=== PATIENT | female | born 1975 | race Caucasian/White ===

== ENCOUNTER 2025-03-24 13:29 | Outpatient (AMB) | payer OTHER, SELFPAY ==
--- NOTE | 2025-03-24 13:19 | A.OFFVIS_ITS ---
Vital Signs 03/24/25 13:33 Height 5 ft 2.2 in Weight 232 lb 2 oz BMI 42.2 BP 130/84 Blood Pressure Location Rt brachial Position Sitting Pulse 83 Pulse Source Pulse Oximeter Pulse Oximetry (%) 98 Oxygen Delivery Method Room Air Intake Visit Reasons: pulm lung nodule Allergies codeine Allergy (Intermediate, Verified 03/24/25 13:36) Hives HPI HPI pulm lung nodule: Details: Eladia is a pleasant 49 year old, former minimal smoker, with underlying asthma in history of DVT/PE. She was referred by PCP pulmonary evaluation after recent chest CT revealed mediastinal lymphadenopathy. Prior chest CT from 2022 revealed similar findings however images not available today. She denies prior workup for these findings. She denies personal or family history of autoimmune conditions. She endorses joint pain, skin rashes and night sweats. Denies dry eyes, dry mouth, cardiac, liver or kidney disease. She reports history of asthma since childhood however symptoms have been mild and intermittent only requiring albuterol a few times a year. 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 She was hospitalized in July 2023 for asthma. She reports respiratory symptoms are triggered by cold air, humidity and exertion. She is under the care of Dr. Dangelo, salary manager, awaiting environmental testing. She was also prescribed AirSupra which she has not used since being prescribed. She reports intermittent dyspnea on exertion, otherwise denies wheezing, chest tightness or. She reports recent PFT there [facility] which was reportedly normal, results not available today. She reports prior history of PE/DVT about 15 years ago on 3 separate occasions unclear if they provoked. She has upcoming appointments Hematology for further evaluation. She endorses significant secondhand smoke exposure. She endorses likely occupational exposures working in the [employer] for 15 years. She reports paternal grandparents with COPD/emphysema, smoker is, otherwise denies any pertinent family history. [facility] Social History (Updated 03/24/25 @ 13:36 by Gloria Mckeon [facility]) Patient Tobacco Use Status: Former Tobacco user Review of Systems Const Denies chills, Denies excessive sweating, Denies fever(s) and Denies headache(s) Eyes Denies dry eyes, Denies irritation and Denies itchy eyes ENT Reports Normal hearing present and Denies headache(s) Card Denies chest pain, Denies chest pain at rest, Denies chest pain with activity, Denies claudication, Denies leg edema, Denies orthopnea and Denies paroxysmal nocturnal dyspnea Resp Denies chest congestion, Denies cough, Denies excessive phlegm production, Denies pain on inspiration, Denies pain with cough, Denies stridor and Denies wheezing Musc Denies myalgias Neuro Reports Normal hearing present and Denies headache(s) Endo Denies excessive sweating Jaydon/Lymph Denies lymphadenopathy Aller/Immun Denies itchy eyes, Denies seasonal rhinorrhea and Denies wheezing Physical Exam Vital Signs: Last Vital Signs Pulse 83 03/24/25 13:33 BP 130/84 03/24/25 13:33 Pulse Ox 98 03/24/25 13:33 Oxygen Delivery Method Room Air 03/24/25 13:33 BMI result Body Mass Index 42.2 Const General: cooperative, healthy appearing, comfortable, no acute distress, well developed and alert Nutritional Appearance: obese Orientation/consciousness: patient oriented x3 Limitations: no limitations HEENT Head: Yes normal to inspection, Yes normocephalic and Yes atraumatic Ears: hearing grossly normal bilaterally and external ears normal Eyes General: appearance normal, both eyes and all related structures Eyelids: Yes eyelids normal Sclerae: sclerae normal EOM: EOMs intact bilaterally Neck Neck: Yes normal visual inspection and Yes no lymphadenopathy Lymphatic: no lymphadenopathy noted Chest Chest palpation & inspection: normal inspection of the chest Resp Effort & Inspection: normal respiratory effort, able to speak in complete sentences, no audible wheezes, no cough, no stridor, not tachypneic, no tripod positioning and no use of accessory muscles Auscultation: clear to auscultation bilaterally Cardio Jugular venous distension: no JVD Rate: regular rate Rhythm: regular rhythm Skin Other: warm, dry General skin exam: no rashes or lesions noted Neuro General: patient oriented x3 Cranial nerves: Yes Normal hearing present Cognition (Neuro): normal cognition Gait exam (Neuro): Normal gait present Extrem General: Yes normal to inspection, Yes capillary refill normal, Yes no clubbing, cyanosis or edema and Yes no pedal edema Psych Appearance: grossly normal and well kempt Speech and movement: Normal speech and movement present and Clear speech present Affect: normal affect Attitude: cooperative Thought process: Normal thought process present Thought content: Normal thought content present Insight: Good insight present (Psych) Judgement: Good judgement present (Psych) Results Reviewed Results Reviewed: Exam Date: 12/23/2024 INDICATION: Lung nodules. History of asthma. TECHNIQUE: CT of the chest was performed without contrast. Automated mA/kV exposure control was utilized and patient examination was performed in strict accordance with principles of ALARA. RADIATION AMOUNT: 549.20 mGy-cm. COMPARISON: None Available. FINDINGS: The heart is normal in size without pericardial effusion. Coronary artery calcifications are not identified. Azygous node is enlarged measuring 2.7 x 1.7 cm. There is no pleural effusion, pleural thickening, or pneumothorax. The airways are patent. Lungs are clear without consolidation, interstitial disease, or suspicious nodules. Upper abdomen demonstrates no acute pathology. There are no acute fractures. No suspicious bony lesions. IMPRESSION: No acute cardiopulmonary abnormality. Single enlarged azygos lymph node of uncertain significance. No evidence of pulmonary nodule. No evidence of interstitial lung disease. Mohamud Valdez MD Signed by Mohamud Valdez MD [facility] provided for [facility] Radiology Assessment & Plan Assessment & Plan (1) Mediastinal lymphadenopathy: Code(s): R59.0 - Localized enlarged lymph nodes Category: Medical (2) Asthma: Code(s): J45.909 - Unspecified asthma, uncomplicated Category: Medical Plan Eladia presents for pulmonary evaluation after known history of mediastinal lymphadenopathy. Will send for repeat chest CT with contrast now as prior CT was from 3 months ago. The lymphadenopathy could be a result of underlying autoimmune condition, will send for labs to assess. She reports recent PFT performed through [facility], will attempt to obtain. At this time, she reports symptoms of asthma are well controlled with minimal use of albuterol. She is aware to call if symptoms worsen. All questions were answered and patient is in agreement of plan. Will follow-up to review results or sooner if needed. Orders: Orders YI Reflex Titer and Pattern Today R59.0 - Localized enlarged lymph nodes Angiotensin Converting Enzyme Today R59.0 - Localized enlarged lymph nodes Cyclic Citrullinated Peptide Today R59.0 - Localized enlarged lymph nodes Scleroderma 70 Antibody Today R59.0 - Localized enlarged lymph nodes Anti DNA DS Antibody Today R59.0 - Localized enlarged lymph nodes Sjogren's Antibodies Today R59.0 - Localized enlarged lymph nodes Rheumatoid Factor Today R59.0 - Localized enlarged lymph nodes CT chest w IV con Today R59.0 - Localized enlarged lymph nodes Coding Level of Care Code New Pt Level 4 (59062) Diagnoses Mediastinal lymphadenopathy R59.0 Asthma J45.909
[2025-03-24 13:33] VITALS: BP 130/84; PULSE 83; O2SAT 98; BMI 42.2
== END 2025-03-24 14:14 | disposition home or self-care (01) ==
LOC: HO.HPSW 13:29
PROVIDERS: Visit Provider Nurse Practitioner Family
DX: R59.0 Localized enlarged lymph nodes (principal); J45.909 Unspecified asthma, uncomplicated
CPT/HCPCS: 99204

== ENCOUNTER → 2025-03-24 13:29 | Outpatient (BNVA) | payer OTHER, SELFPAY | PROVIDERS: Visit Provider Nurse Practitioner Family ==

== ENCOUNTER 2025-03-25 07:57 | Outpatient (REF) | payer OTHER, SELFPAY ==
[2025-03-25 11:46] LABS: Rheumatoid Factor < 13.0 IU/mL (<15.0)
[2025-03-26 16:34] LABS: Anti DNA DS Antibody 2 IU/mL; Antibody to SS-A Antigen <1.0 NEG AI (<1.0 NEG); Antibody to SS-B Antigen <1.0 NEG AI (<1.0 NEG); Scleroderma 70 Antibody <1.0 NEG AI (<1.0 NEG)
[2025-03-29 00:49] LABS: Angiotensin Converting Enzyme 19 U/L (9-67)
[2025-03-30 15:05] LABS: Anti Nuclear Antibody Screen NEGATIVE (NEGATIVE)
[2025-03-31 13:48] LABS: Cyclic Citrullinated Peptide <16 UNITS
== END 2025-03-25 07:58 | disposition home or self-care (01) ==
LOC: HO.WFDLDS 07:57
PROVIDERS: Visit Provider Nurse Practitioner Family
DX: R59.0 Localized enlarged lymph nodes (principal)
CPT/HCPCS: 36415; 82164; 86038; 86200; 86225; 86235; 86431

== ENCOUNTER 2025-04-28 13:26 | Outpatient (REF) | payer OTHER, SELFPAY ==
--- NOTE | ~2025-04-28 | CT_ITS ---
EXAMINATION: CT CHEST WITH CONTRAST CLINICAL INFORMATION: Localized enlarged lymph nodes. COMPARISON: None available. TECHNIQUE: Multidetector volumetric CT imaging of the chest was obtained after the administration of 65 mL of Omnipaque 350 intravenous contrast without immediate adverse reactions. Axial MIP volume rendering provided. Sagittal and coronal reformatted images were obtained. This CT examination was performed using dose optimization techniques as appropriate, variously including the following: *Automated exposure control *Adjustment of mA and/or kV according to patient size (this includes techniques or standardized protocols for targeted exams where dose is matched to indication/reason for exam; i.e. extremities or head) *Use of iterative reconstruction technique. DLP: 223 mGy centimeter. FINDINGS: REVISING CLERK: No hyperinflation. Normal sized cardiomediastinal silhouette. Multilevel spondylosis. Patient's large body habitus. LUNGS: Pulmonary patchy groundglass, lower lung lobes. No gross consolidation. No bronchiectasis. No honeycombing. Respiratory airways patent. MEDIASTINUM: There is a 39 mm low density nodule in the right pretracheal region. No aneurysm or dissection in the thoracic aorta. For IV contrast enhancement of the pulmonary artery and its branches. No pericardial effusion. No pneumomediastinum. No hemothorax. Thyroid gland is not enlarged. No lymphadenopathy in the pulmonary hilum. PLEURA: No pleural effusion. No pneumothorax. No calcified pleural plaques. No hemothorax. AXILLA: No lymphadenopathy. UPPER ABDOMEN: No gross ascites. No hydronephrosis in either kidney. OSSEOUS STRUCTURES: Multilevel spondylosis in the axial skeleton. No acute fracture or gross listhesis. No gross lytic or blastic lesions. CT/CT chest w IV con IMPRESSION: There is a 9 mm low-density nodule/lymphadenopathy right pretracheal. Consider small airway disease versus small pulmonary artery disease versus pneumonitis. Multilevel spondylosis. Fleischner guidelines were followed. Electronically signed by: Jeremy Cooper MD 04/28/2025 02:58 PM EDT
--- OUTSIDE RECORDS SUMMARY | 2025-04-28 14:13 | XMS_ITS | Clinical Summary ---
Author Organization [facility] Address [address] [place] [address] Phone Care Team Providers Care Trader Name Role Phone Norman Pfeiffer MD Primary Care Pr ovider Allergies Active Allergy Reactions Criticality Noted Date Comments Codeine 07/20/2013 hives Medications bisacodyL (Dulcolax, bisacodyl,) 5 mg EC tablet Take 2 tabs at 6pm as directed. 12/11/2022 Active Active Problems Problem Noted Date Diagnosed Date Abdominal pain 10/19/2024 Celiac sprue 10/19/2024 Vitamin D deficiency 02/22/2016 Shoulder pain 01/12/2015 PCOS (polycystic ovarian syndrome) 04/28/2012 Migraine 03/03/2012 Obesity 01/03/2012 Immunizations Name Administration Dates Next Due Hepatitis B (Lmvriff-D-Opxxf , Recombivax HB-Adult) 19yo and older 09/30/2003,08/31/2003 Influenza trivalent, with pr eservative (Fluzone; Afluria) 6mo and older 09/11/2021 PPD Test 04/03/2017,09/14/2004,11/17/2002 Td, Unspecified 08/31/2003 Tdap Tetanus diptheria acell ular pertussis (Boostrix; Adacel) 7yo and older 01/14/2012 Surgical History Surgery Date Site/Laterality Comments OTHER SURGICAL HISTORY PROCEDURE: DENIES PREVIOUS SURGERY Medical History Medical History Date Comments Metabolic syndrome DX:Metabolic syndrome PCOS (polycystic ovarian syndrome) DX:PCOS (polycystic ovarian syndrome) Chronic fatigue DX:Chronic fatig ue; COMMENT: in high school, but not as an adult Lumbar herniated disc 2001 DX:Lumbar herniated disc; COMMENT: L5-S1 Obesity DX:Obesity Vitamin D deficiency 02/22/2016 DX:Vitamin D deficiency Migraine headache with aura DX:M igraine headache with aura Bronchitis DX:Bronchitis Abdominal pain DX:Abdominal ruben n Celiac sprue DX:Celiac sprue Family History Medical History Relation Name Comments Hypertension Father Other: prediabetes Father Other: Other Maternal Grandmother celiac/ uterine fibroids Other: Other Mother uterine fibroid s COPD Paternal Grandfather COPD Paternal Grandmother Breast cancer Neg Hx Colon cancer Neg Hx Ovarian cancer Neg Hx Uterine cancer Neg Hx Relation Name Status Comments Brother Alive healthy Father Alive HTN, gout, arth ritis Maternal Grandfather Alive DM, narayan kemia, CVAs Maternal Grandmother Alive celiac Mother Alive fibroids Paternal Grandfather Alive COPD, p rediabetes, pacemaker, afib Paternal Grandmother (Age 83) [place]; hospice care Social History Tobacco Use Types Packs/Day Years Used Date Smoking Tobacco: Never Smokeless Tobacco: Never Alcohol Use Standard Drinks/Week Comments No 0 (1 standard drink = 0.6 oz pur e alcohol) Comments Unknown Sex and Gender Information Value Date Recorded Sex Assigned at Female 01/18/2025 12:33 PM EDT Legal Sex Female 8:05 AM EST Gender Identity Female 01/18/2025 12:33 PM EDT Sexual Orientation Not on file Obstetrics History Last Filed Vital Signs Vital Sign Reading Time Taken Comments Blood Pressure 124/76 07/20/2022 8:06 AM EDT Pulse 86 07/20/2022 8:06 AM EDT Temperature - - Respiratory Rate - - Oxygen Saturation - - Inhaled Oxygen Concentration - - Weight 110 kg (243 lb 4.8 oz) 07/20/2022 8:06 AM EDT Height 159.4 cm (5' 2.75 ) 07/20/2022 8:06 AM ED T Body Mass Index 43.44 07/20/2022 8:06 AM EDT Plan of Treatment Health Maintenance Due Date Last Done Comments Breast Cancer Screening 1975 Pneumococcal Vaccine: Pediatrics (0 to 5 Years) and At-Risk Patients (6 to 49 Years) (1 of 2 - PCV) 1994 Hepatitis B Vaccines (3 of 3 - 19+ 3-dose series) 02/29/2004 09/30/2003, 08/31/2003 Cervical Cancer Screening: P ap Smear 07/16/2019 07/16/2016, 07/16/2016 DTaP,Tdap,and Td Vaccines (3 - Td or Tdap) 01/13/2022 01/14/2012, 08/31/2003 Colorectal Cancer Screening: Colonoscopy 09/22/2022 Depression Screening 09/22/2022 HIV Screening 09/22/2022 Hepatitis C Screening 09/22/2022 Social Influencers of Health Screening 09/22/2022 COVID-19 Vaccine (2023-2 5 season) 2024 Influenza Vaccine (#1) 2025 09/11/2021 Cholesterol Screening (Lipid Panel) 03/28/2026 03/28/2021 HIB Vaccines Aged Out No longer eligi ble based on patient's age to complete this topic HPV Vaccines Aged Out No longer eligi ble based on patient's age to complete this topic Hepatitis A Vaccines Aged Out No long er eligible based on patient's age to complete this topic IPV Vaccines Aged Out No longer eligi ble based on patient's age to complete this topic MMR Vaccines Aged Out No longer eligi ble based on patient's age to complete this topic Meningococcal ACWY Vaccine Aged Out N o longer eligible based on patient's age to complete this topic Meningococcal B Vaccine Aged Out No l onger eligible based on patient's age to complete this topic RSV Immunization Patients Under 20 months Aged Out No longer eligible b ased on patient's age to complete this topic Varicella Vaccines Aged Out No longer eligible based on patient's age to complete this topic Procedures Procedure Name Priority Date/Time Associated Diagnosis Comments LIPID PANEL Routine 03/28/2021 HM HPV Routine 07/16/2016 from Last 3 Months or Most Recently Relevant to Health Maintenance Results * (ABNORMAL) Lipid panel (03/28/2021) LDL/HDL Ratio 4 0 - 4 Triglycerides 277(A) 0 - 150 mg/dL Cholesterol 230(A) 0 - 200 mg/dL HDL 54 >=40 mg/dL LDL Cholesterol 121(A) 0 - 100 mg/dL Blood Venous blood specimen / Unknown Historical Provider LAB BLOOD ORDERABLES Vandana l Result * Cervical Cancer Screening: HPV (07/16/2016) Cervical Cancer Screening: HPV Negative, Abstracted Historical Provider HEALTH MAINTENANCE Final Result from Last 3 Months or Most Recently Relevant to Health Maintenance Insurance [facility] Care Teams Trader Relationship Specialty Start Date End Date Norman Pfeiffer MD [address], [place] PCP - General Internal Medicine 05/04/22
--- OUTSIDE RECORDS SUMMARY | 2025-04-28 14:13 | XMS_ITS | Clinical Summary ---
Author Organization [facility] Address [address] [place] [address] Care Team Providers Care Healthcare Account Manager Name Role Phone Unavailable Primary Care Provider Unavailabl e Social History Tobacco Use Types Packs/Day Years Used Date Smoking Tobacco: Never Assessed Comments Unknown Sex and Gender Information Value Date Recorded Sex Assigned at Not on file Legal Sex Female 8:21 AM EST Gender Identity Not on file Sexual Orientation Not on file Plan of Treatment Health Maintenance Due Date Last Done Comments Hepatitis C Virus Screening 1975 HIV Screening 1988 DTaP/Tdap/Td Vaccines (1 - Tdap) 1994 Hepatitis B Vaccines (1 of 3 - 19+ 3-dose series) 1994 COVID-19 Vaccine (2023-2 5 season) 2024 Pneumococcal Vaccine: Pediat charo (0-5 Years) and At-Risk Patients (6 to 49 Years) Aged Out No longer eligible b ased on patient's age to complete this topic
[2025-04-28] MEDS: iohexoL 350 MG/ML 100 ML INFUS..BTL IV (14:51)
== END 2025-04-28 13:27 | disposition home or self-care (01) ==
LOC: HO.CT 13:26
PROVIDERS: Visit Provider Nurse Practitioner Family
DX: R59.0 Localized enlarged lymph nodes (principal)
CPT/HCPCS: 71260; Q9967

== ENCOUNTER → 2025-04-28 13:28 | Outpatient (BNV) | payer OTHER, SELFPAY | PROVIDERS: Visit Provider Radiology Diagnostic Radiology | DX: R91.1 Solitary pulmonary nodule (principal); M47.814 Spondylosis without myelopathy or radiculopathy, thoracic region | CPT/HCPCS: 71260 ==

== ENCOUNTER 2025-05-25 10:54 | Outpatient (AMB) | payer OTHER, SELFPAY ==
[2025-05-25 10:56] VITALS: BP 130/82; PULSE 74; O2SAT 97; BMI 41.7
--- NOTE | 2025-05-25 10:56 | A.OFFVIS_ITS ---
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 She was initially referred by PCP pulmonary evaluation after chest CT 12/2024 revealed mediastinal lymphadenopathy with noting enlarged azygos lymph node. Prior chest CT from 2022 revealed ill defined 9mm LLL opacity which has since resolved as well as a cluster of enlarged lymph nodes measuring 2.5 x 2.2 cm. At the last visit she was sent for repeat chest CT to assess stability. The patient has a history of asthma, initially diagnosed in childhood as exercise-induced asthma, which was largely asymptomatic until a recent exacerbation. She reports intermittent use of AirSupra, particularly in response to poor air quality, and finds it helpful in managing symptoms, prescribed by customs officer. She reports recent PFT performed at [facility], reviewed report and unremarkable PFT. She reports prior history of PE/DVT about 15 years ago on 3 separate occasions unclear if they provoked, however notes the first occurrences associated with control use. She has been established with [facility] and has undergone extensive hematologic evaluation, including a thrombophilia panel, with results pending. Today she presents to review CT results. FOR[facility]LY [facility], [facility] Social History Patient Tobacco Use Status: Former Tobacco user Review of Systems Const Denies chills, Denies excessive sweating, Denies fever(s) and Denies headache(s) Eyes Denies dry eyes, Denies irritation and Denies itchy eyes ENT Reports Normal hearing present and Denies headache(s) Card Denies chest pain, Denies chest pain at rest, Denies chest pain with activity, Denies claudication, Denies leg edema, Reports dyspnea on exertion, Denies orthopnea and Denies paroxysmal nocturnal dyspnea Resp Denies chest congestion, Denies cough, Denies excessive phlegm production, Denies pain on inspiration, Denies pain with cough, Reports dyspnea on exertion, Denies stridor and Denies wheezing Musc Denies myalgias Neuro Reports Normal hearing present and Denies headache(s) Endo Denies excessive sweating Jaydon/Lymph Denies lymphadenopathy Aller/Immun Denies itchy eyes, Denies seasonal rhinorrhea and Denies wheezing Physical Exam Vital Signs: Last Vital Signs Pulse 74 05/25/25 10:56 BP 130/82 05/25/25 10:56 Pulse Ox 97 05/25/25 10:56 Oxygen Delivery Method Room Air 05/25/25 10:56 BMI result Body Mass Index 41.7 Const General: cooperative, healthy appearing, comfortable, no acute distress, well developed and alert Nutritional Appearance: obese Orientation/consciousness: patient oriented x3 Limitations: no limitations HEENT Head: Yes normal to inspection, Yes normocephalic and Yes atraumatic Ears: hearing grossly normal bilaterally and external ears normal Eyes General: appearance normal, both eyes and all related structures Eyelids: Yes eyelids normal Sclerae: sclerae normal EOM: EOMs intact bilaterally Neck Neck: Yes normal visual inspection and Yes no lymphadenopathy Lymphatic: no lymphadenopathy noted Chest Chest palpation & inspection: normal inspection of the chest Resp Effort & Inspection: normal respiratory effort, able to speak in complete sentences, no audible wheezes, no cough, no stridor, not tachypneic, no tripod positioning and no use of accessory muscles Auscultation: clear to auscultation bilaterally Cardio Jugular venous distension: no JVD Rate: regular rate Rhythm: regular rhythm Skin Other: warm, dry General skin exam: no rashes or lesions noted Neuro General: patient oriented x3 Cranial nerves: Yes Normal hearing present Cognition (Neuro): normal cognition Gait exam (Neuro): Normal gait present Extrem General: Yes normal to inspection, Yes capillary refill normal, Yes no clubbing, cyanosis or edema and Yes no pedal edema Psych Appearance: grossly normal and well kempt Speech and movement: Normal speech and movement present and Clear speech present Affect: normal affect Attitude: cooperative Thought process: Normal thought process present Thought content: Normal thought content present Insight: Good insight present (Psych) Judgement: Good judgement present (Psych) Results Reviewed Results Reviewed: [address] [address] [address] Scan Report Signed Patient: Eladia Saldana MR#: [id number] : 1975 Acct:[id number] Age/Sex: 49 / F ADM Date: 04/28/25 Loc: HO.CT Attending Dr: Chrissy Grarett NP Ordering Physician: Chrissy Garrett NP Date of Service: 04/28/25 Procedure(s): CT chest w IV con Accession Number(s): [id number] cc: Physician,None ; Chrissy Garrett NP~ Report Number: [id number]: Total DLP = 223.00 mGy-cm EXAMINATION: CT CHEST WITH CONTRAST CLINICAL INFORMATION: Localized enlarged lymph nodes. COMPARISON: None available. TECHNIQUE: Multidetector volumetric CT imaging of the chest was obtained after the administration of 65 mL of Omnipaque 350 intravenous contrast without immediate adverse reactions. Axial MIP volume rendering provided. Sagittal and coronal reformatted images were obtained. This CT examination was performed using dose optimization techniques as appropriate, variously including the following: *Automated exposure control *Adjustment of mA and/or kV according to patient size (this includes techniques or standardized protocols for targeted exams where dose is matched to indication/reason for exam; i.e. extremities or head) *Use of iterative reconstruction technique. DLP: 223 mGy centimeter. FINDINGS: GUNITE MIXER: No hyperinflation. Normal sized cardiomediastinal silhouette. Multilevel spondylosis. Patient's large body habitus. LUNGS: Pulmonary patchy groundglass, lower lung lobes. No gross consolidation. No bronchiectasis. No honeycombing. Respiratory airways patent. MEDIASTINUM: There is a 39 mm low density nodule in the right pretracheal region. No aneurysm or dissection in the thoracic aorta. For IV contrast enhancement of the pulmonary artery and its branches. No pericardial effusion. No pneumomediastinum. No hemothorax. Thyroid gland is not enlarged. No lymphadenopathy in the pulmonary hilum. PLEURA: No pleural effusion. No pneumothorax. No calcified pleural plaques. No hemothorax. AXILLA: No lymphadenopathy. UPPER ABDOMEN: No gross ascites. No hydronephrosis in either kidney. OSSEOUS STRUCTURES: Multilevel spondylosis in the axial skeleton. No acute fracture or gross listhesis. No gross lytic or blastic lesions. CT/CT chest w IV con IMPRESSION: There is a 9 mm low-density nodule/lymphadenopathy right pretracheal. Consider small airway disease versus small pulmonary artery disease versus pneumonitis. Multilevel spondylosis. Fleischner guidelines were followed. Electronically signed by: Jeremy Cooper MD 04/28/2025 02:58 PM EDT RP Dictated By: Jeremy Cole MD Signed By: <Electronically signed by Jeremy Diez MD in [place]> 04/28/25 1458 DD/ 1425 TD/TT: 04/28/25 1450 Heavy Lift Rigger: Assessment & Plan Assessment & Plan (1) Mediastinal lymphadenopathy: Code(s): R59.0 - Localized enlarged lymph nodes Category: Medical (2) Asthma: Code(s): J45.909 - Unspecified asthma, uncomplicated Category: Medical Plan The patient is advised to continue using AirSupra as needed, particularly in response to poor air quality, and to monitor for increased frequency of use, which may necessitate a daily maintenance inhaler. A repeat CT chest with contrast will be ordered in 3 months to monitor the 9 mm low-density nodule/lymphadenopathy right pretracheal, with a focus on any changes in size or characteristics. The patient is also undergoing a thorough hematologic evaluation, including a thrombophilia panel, to assess the risk of further thrombotic events. All questions were answered and patient is in agreement of plan. Will follow-up to review results or sooner if needed. Coding Level of Care Code Est Pt Level 4 (28925) Diagnoses Mediastinal lymphadenopathy R59.0 Asthma J45.909
--- OUTSIDE RECORDS SUMMARY | 2025-05-25 12:01 | XMS_ITS | Clinical Summary ---
Author Organization [facility] Address [address] [place] [address] Phone Care Team Providers Care Shingle Trimmer Name Role Phone Norman Pfeiffer MD Primary [...] Name Administration Dates Next Due Hepatitis B (Vsgpewz-Y-Stfdg , Recombivax HB-Adult) 19yo and older 09/30/2003,08/31/2003 [...] 01/14/2012, 08/31/2003 Colorectal Cancer Screening: Colonoscopy 09/22/2022 HIV Screening 09/22/2022 Hepatitis C Screening 09/22/2022 Social Influencers of Health Screening 09/22/2022 COVID-19 Vaccine (1 - 2023-2 5 season) 2024 Depression Screening 10/14/2024 Influenza Vaccine (#1) 2025 09/11/2021 Cholesterol Screening [...] Most Recently Relevant to Health Maintenance Insurance [facility] Care Teams Shingle Trimmer Relationship Specialty Start Date End Date Norman Pfeiffer MD [address], [place] PCP - General Internal Medicine 05/04/22
--- OUTSIDE RECORDS SUMMARY | 2025-05-25 12:01 | XMS_ITS | Clinical Summary ---
Author Organization [facility] Address [address] [place] [phone] Phone Care Team Providers Care Internal Medicine Specialist Name Role Phone Pcp, Unknown Primary Care Provider Unavailabl e Allergies Active Allergy Reactions Criticality Noted Date Comments Codeine Hives 03/18/2025 Medications AIRSUPRA 90-80 mcg/actuation inhaler Inhale 2 puffs into the lungs daily as needed. 5 Active buPROPion (WELLBUTRIN XL) 150 MG ER 24 hr tablet Take 1 tablet by mouth every morning. 5 Active cetirizine (ZYRTEC) 10 MG tablet Take 1 tablet by mouth every morning. 5 Active ciclopirox (PENLAC) 8 % solution Apply topically nightly at bedtime. 5 Active EPINEPHrine 0.3 mg/0.3 mL auto-injector Inject 0.3 mg into the muscle once as needed. 5 Active metFORMIN (GLUCOPHAGE) 500 MG tablet Take 1 tablet by mouth every morning. 5 Active Encounters Date Type Department Care Team Description 03/22/2025 2:30 PM EDT - 03/22/2025 3:00 PM EDT Surgery [facility] Endoscopy Admitting Dept Virtual Department [address] [place] [id number] Chris Grullon MD COLONOSCOPY 03/22/2025 12:14 PM EDT Anesthesia Event [facility] Admitting Dept Virtual Department [address] [place] [address] Chandrakant Srivastava MD 03/22/2025 11:03 AM EDT - 03/22/2025 1:20 PM EDT Hospital Encounter [facility] Admitting [facility] Virtual Department [address] [place] [phone] Chris Grullon MD Discharge Disposition: Home or Self Care 03/22/2025 Procedure Pass [facility] Admitting Dept Virtual Department [address] [place] [address] 03/17/2025 3:30 PM EDT Pre-Admission Testing Pre Procedure Evaluation [address] [place] [address] Chris Grullon MD from Last 3 Months Social History Tobacco Use Types Packs/Day Years Used Date Smoking Tobacco: Former Cigarettes Q uit: 1994 Smokeless Tobacco: Never Tobacco Cessation:Counseling Given: Not Answered Alcohol Use Standard Drinks/Week Comments Not Currently 0 (1 standard drink = 0.6 oz pur e alcohol) Education Answer Date Recorded Are you interested in more education? Not on alana e 02/08/2025 Are you concerned about learning? Not on file 02/08/2025 No 02/08/2025 No 02/08/2025 Digital Access Answer Date Recorded No 02/08/2025 No 02/08/2025 Reliable internet access at home? Not on file 02/08/2025 Device with a working camera? Not on file Intimate Partner Violence Answer Date R ecorded Are you denied basic needs s uch as food, clothing, or medical care? No 03/22/2025 In the past 12 months have y ou been in a relationship with a person who hurts, threatens, or tries to control you? No 03/22/2025 Are you denied basic needs s uch as food, clothing, or medical care? No 03/22/2025 In the past 12 months have y ou been in a relationship with a person who hurts, threatens, or tries to control you? No 03/22/2025 Comments No Sex and Gender Information Value Date Recorded Sex Assigned at Not on file Legal Sex Female 10:05 AM EDT Gender Identity Not on file Sexual Orientation Not on file Last Filed Vital Signs Vital Sign Reading Time Taken Comments Blood Pressure 130/81 03/22/2025 1:00 PM EDT Pulse 76 03/22/2025 1:00 PM EDT Temperature 36.5 C (97.7 F) 03/22/2025 11:25 AM EDT Respiratory Rate 15 03/22/2025 1:00 PM EDT Oxygen Saturation 96% 03/22/2025 1:00 PM EDT Inhaled Oxygen Concentration - - Weight 104.3 kg (230 lb) 03/18/2025 11:57 AM EDT Height 157.5 cm (5' 2 ) 03/18/2025 11:57 AM EDT Body Mass Index 42.07 03/18/2025 11:57 AM EDT Plan of Treatment Health Maintenance Due Date Last Done Comments CREATININE LEVEL 1975 DEPRESSION SCREENING 1987 HEPATITIS C SCREENING 1993 HIV ONE-TIME SCREENING (18-6 5 YEARS) 1993 PAP SMEAR 1996 SCREENING FOR DIABETES 2010 COLOGUARD 2020 FIT TEST 2020 FOBT 2020 SIGMOIDOSCOPY 2020 VIRTUAL COLONOSCOPY 2020 Adult Td,Tdap Booster 01/13/2022 01/14/2012 , 08/31/2003 COVID-19 VACCINE (2023-2 5 season) 2024 SMOKING Hx and SMOKELESS TOBACCO SCREENING 03/22/2026 03/22/2025 LIPID PANEL 03/28/2026 03/28/2021 MAMMOGRAM 01/21/2027 01/21/2025 COLONOSCOPY 03/22/2035 03/22/2025 COLORECTAL CANCER SCREENING 03/22/2035 HEPATITIS A VACCINES Aged Out No long er eligible based on patient's age to complete this topic HIB VACCINES Aged Out No longer eligi ble based on patient's age to complete this topic MENINGOCOCCAL VACCINES (ACWY) Aged Out No longer eligible based on patient's age to complete this topic MENINGOCOCCAL VACCINES (B) Aged Out N o longer eligible based on patient's age to complete this topic PNEUMOCOCCAL VACCINES (0-49 years) Aged Out No longer eligible b ased on patient's age to complete this topic Medical Devices Not on file Procedures Procedure Name Priority Date/Time Associated Diagnosis Comments NE COLSC FLX W/RMVL OF TUMOR POLYP LESION SNARE TQ 03/22/2025 12:14 PM EDT Gluten intolerance Special Needs MetforminHx PE/DVTOSA NE COLONOSCOPY W/BIOPSY SINGLE/MULTIPLE 03/22/2025 12:14 PM EDT Gluten intolerance Special Needs MetforminHx PE/DVTOSA NE COLONOSCOPY FLX DX W/COLLJ SPEC WHEN PFRMD 03/22/2025 12:14 PM EDT Gluten intolerance Special Needs MetforminHx PE/DVTOSA ENDOSCOPY, COLON 03/22/2025 12:0 9 PM EDT from Last 3 Months Results * ENDOSCOPY, COLON (03/22/2025 12:09 PM EDT) Narrative Transcriptions Chris Grullon MD - 03/22/2025 12:09 PM EDT [facility] Patient Name: Eladia Trinh Attending MD:: CHRIS GRULLON MD, Procedure Date: 03/22/2025 12:09 PM Date of : 1975 Age: 49 Admit Type: Outpatient Gender: Female Room: [place] [address] Referring MD: Unknown Unknown Exam Type: Colonoscopy Indications: Screening for colorectal malignant neoplasm, Thisis the patient's first colonoscopy Medications: Monitored Anesthesia Care Procedure: Informed consent was obtained from the patientafter discussion of the indications, limitations, alternatives, benefits, and risks of the procedure. Risks specifically discussed include but are not limited to medication reactions, missed lesions, bleeding, perforation, or the need for emergent surgery. Throughout the procedure, the patient's blood pressure, pulse, end-tidal CO2, and oxygensaturations were monitored continuously. The Olympus adult variable colonoscope CF-CK640Y #1 was introduced through the anus and advanced to the terminal ileum, with identification of theappendiceal orifice and IC valve. The colonoscopy was somewhat difficult due to a redundant colon and thepatient's body habitus. Successful completion of theprocedure was aided by applying abdominal pressure. Thepatient tolerated the procedure fairly well. The quality of the bowel preparation was evaluated using the BBPS ([place] Bowel Preparation Scale) with scores of:Right Colon = 3, Transverse Colon = 3 and Left Colon = 3 (entire mucosa seen well with no residual staining, small fragments of stool or opaque liquid). Thetotal BBPS score equals 9. The terminal ileum, ileocecal valve, appendiceal orifice, and rectum were photographed. Complications: No immediate complications. Estimated blood loss:None. Findings: The perianal and digital rectal examinations were normal. Pertinent negatives include normalsphincter tone. The colon (entire examined portion) was mildly redundant. A few small-mouthed diverticula were found in the sigmoid colon. Retroflexion in the right colon was performed. The exam was otherwise without abnormality ondirect and retroflexion views. Impression: - Redundant colon. - Diverticulosis in the sigmoid colon. - The examination was otherwise normal on directand retroflexion views. - No specimens collected. Recommendation: - Repeat colonoscopy in 10 years for screening purposes. - Continue present medications. CHRIS GRULLON MD 03/22/2025 12:36:02 PM This report has been signed electronically. Number of Addenda: 0 Note Initiated On: 03/22/2025 12:09 PM Procedure Code(s): --- Professional --- 19988, Colonoscopy, flexible; diagnostic, including collection of specimen(s) by brushing or washing, when performed (separateprocedure) --- Technical --- 78876, Colonoscopy, flexible; diagnostic, including collection of specimen(s) by brushing or washing, when performed (separateprocedure) Diagnosis Code(s): --- Professional --- Z12.11, Encounter for screening for malignantneoplasm of colon K57.30, Diverticulosis of large intestine without perforation or abscess without bleeding Q43.8, Other specified congenital malformations of intestine --- Technical --- Z12.11, Encounter for screening for malignantneoplasm of colon K57.30, Diverticulosis of large intestine without perforation or abscess without bleeding Q43.8, Other specified congenital malformations of intestine CPT copyright 2021 [employer]. All rights reserved. The codes documented in this report are preliminary and upon tow motor driver reviewmay be revised to meet current compliance requirements. Procedure Date: 03/22/2025 12:09:10 PM [address] [place] [address] us Unknown Unknown MD GI PROCEDURE ORDERABLES Final Result from Last 3 Months Insurance POS POS POS POS POS POS Care Teams Internal Medicine Specialist Relationship Specialty Start Date End Date Pcp, Unknown PCP - General 02/08/25 Additional Source Comments The information contained in this document represents components of the legal health record. It is not the complete legal health record.[facility]
--- OUTSIDE RECORDS SUMMARY | 2025-05-25 12:01 | XMS_ITS | Clinical Summary ---
Author Organization [facility] Address [address] [place] [address] Care Team Providers Care Signal Operator Linguist Name Role Phone Unavailable Primary Care Provider [...]
--- OUTSIDE RECORDS SUMMARY | 2025-05-25 12:01 | XMS_ITS ---
Author Name [facility] Organization Unknown Care Team Organization Name Specialty Phone Email Start Date End Da te [facility] 08/21/2022 06/01/2024
--- OUTSIDE RECORDS SUMMARY | 2025-05-25 12:01 | XMS_ITS | Encounter Summary ---
Author Organization [facility] Address [address] [place] [address] Encounters * Online digital evaluation and management service, for an established patient, 21+ minutes during the 7 days, 21+ minutes with Deondre Ross at [facility] on 2025-01-06 We saw Eladia for class 3 obesity and prediabetes. She let us know no GLP-1s are covered by her insurance. We filled her metformin. We evaluated Eladia Saldana for Class 3 Obesity (BMI >40), Annual Wellness Visit, and Prediabetes during this period from 2025-01-06 to 2025-01-13. A log history of our dialog is attached below. PHR was confirmed per below. 1. Prediabetes (R73.03) metformin 500 mg tablet CHRONIC CARE PLAN SOAP NOTE SUBJECTIVE: Patient presenting for management of: prediabetes 49F w/ prediabetes and class 3 obesity. Tx initiated w/ metformin 500mg daily on 12/12. Pt reports positive results so far, w/ ~3lbs weight loss and reduction in A1c. She is also making efforts to reduce sugar and fat intake and increase protein. Exercise is still minimal d/t fatigue and schedule limitations. Pt does endorse mild ALONSO as a side effect of metformin, which she has experienced previously when taking this medication, but she notes the HAs are tolerable. OBJECTIVE: 12/12/24: BP reported as 128/87 HR 80, HT 63 Wt 230 lbs, BMI 40.7 [facility] labs collected on 12/25/24. A1c 5.6 Labs collected on 12/10/24. CMP wnl A1C 5.8%(H) I have reviewed and updated the problem and medication list and assessed the patient's pertinent positives and negatives as outlined on 01/06/25. ASSESSMENT & PLAN: Diagnosis +/- stage: prediabetes- A1c improved w/ metformin and lifestyle - Complicated by class 3 obesity, elevated BP, PCOS Plan: 1. Cont metformin 500mg daily #90, 0 RF 2. Asking for weight update 3. Cont lifestyle efforts Follow-up interval and reason/type: - refill- 85d Written by Deondre Ross on 2025-01-06
== END 2025-05-25 11:51 | disposition home or self-care (01) ==
LOC: HO.HPSW 10:55
PROVIDERS: Visit Provider Nurse Practitioner Family
DX: R59.0 Localized enlarged lymph nodes (principal); J45.909 Unspecified asthma, uncomplicated
CPT/HCPCS: 99214

== ENCOUNTER 2025-07-19 08:07 | Outpatient (REF) | payer OTHER, SELFPAY ==
--- NOTE | ~2025-07-19 | CT_ITS ---
EXAMINATION: CT CHEST WITH CONTRAST CLINICAL INFORMATION: Enlarged lymph nodes COMPARISON: CT 04/28/2025 TECHNIQUE: Multidetector volumetric CT imaging of the chest was obtained after the administration of 65 mL of Omnipaque 350 intravenous contrast without immediate adverse reactions. Axial MIP volume rendering provided. Sagittal and coronal reformatted images were obtained. This CT examination was performed using dose optimization techniques as appropriate, variously including the following: *Automated exposure control *Adjustment of mA and/or kV according to patient size (this includes techniques or standardized protocols for targeted exams where dose is matched to indication/reason for exam; i.e. extremities or head) *Use of iterative reconstruction technique FINDINGS: LUNGS: No evidence of confluent airspace disease. Trachea and central airway are patent. 2 mm nodule left lower lobe, stable. No suspicious nodules otherwise seen.. MEDIASTINUM: Redemonstrated 2.3 cm enlarged azygos lymph node. No hilar lymphadenopathy. Aorta is of normal caliber. No pericardial effusion. Esophagus is nondistended. PLEURA: No significant pleural effusion. No pneumothorax. AXILLA: No axillary lymphadenopathy. UPPER ABDOMEN: No acute findings. OSSEOUS STRUCTURES: Unremarkable. CT/CT chest w IV con IMPRESSION: Redemonstrated abnormal enlarged azygous lymph node, similar in size as compared to previous. Clinically correlate. Further imaging as clinically indicated. Fleischner guidelines were followed. Electronically signed by: Devon Good MD 07/19/2025 09:53 AM EDT
--- OUTSIDE RECORDS SUMMARY | 2025-07-19 08:17 | XMS_ITS | Clinical Summary ---
Author Organization [facility] Address [address] [place] [address] Care Team Providers Care Community Program Assistant Name Role Phone Norman Pfeiffer MD Primary Care Provider + Allergies Active Allergy Reactions Severity Noted Date Comments Codeine 07/20/2013 hives Medications Medication Sig Dispensed Refills Start Date End Date Status bisacodyl (Dulcolax) 5 MG EC tablet Take 2 tabs at 6pm as directed. 2 Tablet 0 12/11/2022 Active polyethylene glycol (GoLYTELY,NuLYTELY) 236 g suspension Take 4 L by mouth once for 1 dose. (May substitute any PEG) Mix prep according to directions. Drink one 8oz glass at your own pace until half the gallon is completed. Rest and then finish the second half, one 8oz glass at your own pace until gallon is complete. Follow directions given by office for timing. 4000 mL 0 12/11/2022 Active Active Problems Problem Noted Date History of DVT (deep vein thrombosis) Vitamin D deficiency 02/22/2016 Shoulder pain 01/12/2015 PCOS (polycystic ovarian syndrome) 04/28 Migraine 03/03/2012 Obesity 01/03/2012 Abdominal pain Celiac sprue Immunizations Name Administration Dates Next Due Hepatitis B-2 dose(11-15yrs) 09/30/2003,08/31/20 03 Influenza (> 6 Months) 09/11/2021 PPD-RBMG 04/03/2017,09/14/2004,11/17/2002 TETANUS/DIPTHERIA (ADULT) 08/31/2003 Tdap 01/14/2012 Family History Medical History Relation Name Comments Hypertension Father prediabetes Father Other Maternal Grandmother celiac/ uterine fibroids Other Mother uterine fibroid s COPD Paternal Grandfather COPD Paternal Grandmother CA Breast Negative Hx CA Colon Negative Hx CA Ovarian Negative Hx Uterine Cancer Negative Hx Relation Name Status Comments Brother Alive [...] drink = 0.6 oz pur e alcohol) Sex Assigned at Date Recorded Female 03/28/2021 1:11 PM E DT Last Filed Vital Signs Vital Sign Reading Time Taken Comments Blood Pressure 124/76 07/20/2022 8:06 AM EDT Pulse 86 07/20/2022 8:06 AM EDT Temperature 36.9 C (98.4 F) 05/04/2022 2:52 PM EDT Respiratory Rate 18 05/04/2022 2:52 PM EDT Oxygen Saturation 98% 07/20/2022 8:06 AM EDT Inhaled Oxygen Concentration - - Weight 110.4 kg (243 lb 4.8 oz) 07/20/2022 8:06 AM EDT Height 159.4 cm (5' 2.75 ) 07/20/2022 8:06 AM ED T Body Mass Index 43.44 07/20/2022 8:06 AM EDT Plan of Treatment Health Maintenance Due Date Last Done Comments Covid-19 Vaccine (#1) 06/04/1976 MAMMOGRAM 06/27/2017 06/27/2016 CERVICAL CANCER SCREENING 07/16/20192015, 09/22/2011 (External Completion) DTAP/TDAP/TD (2 - Td or Tdap) 01/13/2022 01/14/2012 BASELINE HEALTH EXAM 40-64 03/28/202303/28, 03/28/2021, 03/31/2019, Additional history exists BMI CHECK/ADVISE 10/14/2024 05/04/2022, 07/2021, 03/28/2021, Additional history exists DEPRESSION SCREENING/FOLLOWUP 10/14/2024 03/28/2021 SOCIAL NEEDS SCREENING 10/14/2024 03/28/2021 INFLUENZA (#1) 2025 09/11/2021 CHOLESTEROL SCREENING 03/28/2026 03/28/2021 , 06/06/2016, 01/03/2012 PNEUMOCOCCAL VACCINE FOR HIG H RISK PATIENTS (#1) 2040 Care Teams Community Program Assistant Relationship Specialty Start Date End Date Norman Pfeiffer MD [address] [place] [address] PCP - General Internal Medicine 05/04/22
--- OUTSIDE RECORDS SUMMARY | 2025-07-19 08:17 | XMS_ITS | Patient Health Record ---
Author Organization [facility] Address [address] [place] [address] Care Team Providers Care Caisson Worker Name Role Phone KELVIN BROUSSARD [phone] Allergies Allergen (clinical drug ingredient) Drug/Non Drug Allergy documented on EMR Reaction Allergy Type Onset Date Status codeine Codeine hives Drug Allergy Active Results Component Value Reference Range Notes [id number] IGP No Culture 30 Plus Reviewed date:07/08/2025 03:50:44 PM Interpretation: Performing Lab:[facility], [address], [address], [place], Phone - [phone], Director - [facility] Notes/Report: Clinical Information:VAG/CERV [id number] LMP / Prev Treat...[id number] No. of containers..01 ThinPrep Vial Clinical Information:VAG/CERV [id number] LMP / Prev Treat...[id number] No. of containers..01 ThinPrep Vial DIAGNOSIS: NEGATIVE FOR INTRAEPITHELIAL LESION OR MALIGNANCY. PREDOMINANCE OF COCCOBACILLI CONSISTENT WITH SHIFT IN VAGINAL SELVIN IS PRESENT. THIS SPECIMEN WAS RESCREENED PART OF OUR CNC APPLICATIONS ENGINEER PROGRAM. Specimen adequacy: Satisfact ory for evaluation. No endocervical component is identified. Clinician provided ICD10: Z01.419 Z11.51 Performed by: Rashida alfonso, Reimbursement Counselor (ASCP) QC reviewed by: Doug sepulveda, Reimbursement Counselor (ASCP) . . Note: The Pap smear is a screening test designed to aid in the detection of premalignant and malignant conditions of the uterine cervix. It is not a diagnostic procedure and should not be used as the sole means of detecting cervical cancer. Both false-positive and false-negative reports do occur. . Test Methodology: This liquid based ThinPrep(R) pap test was screened with the use of an image guided system. HPV Aptima Positive Negative This nucleic acid amplification test detects fourteen high-risk HPV types (16,18,31,33,35,39,45,51,52,56,58 ,59,66,68) without differentiation. HPV Genotype Reflex Criteria met, see HPV Genotype results. HPV Genotype 16 Negative Negative HPV Genotype 18,45 Negative Negative PDF Report Reviewed date:07/08/2025 08:43:52 AM Interpretation: Performing Lab:[facility], [address], [address], [place], Phone - [phone], Director - [facility] Notes/Report: Clinical Information:VAG/CERV [id number] LMP / Prev Treat...[id number] No. of containers..01 ThinPrep Vial Reason For Referral No Information Medications Medication SIG (Take, Route, Fr equency, Duration) Notes Start Date End Date Status Cetirizine HCl 10 MG 1 tablet Orally Once a day Active Topiramate 25 MG 1 tablet Orally Once a day Active buPROPion HCl Active Naratriptan HCl 2.5 MG 1 tablet Orally Once a day Active Eva 0.35 MG 1 tablet Orally Once a day; Duration: 84 days 07/09/2025 Active Airsupra 90-80 MCG/ACT 2 puffs as needed Inhalation Six times a day Active Social History Tobacco Use: Social History Observation Description Date Details (start date - stop date) Never Smoker NA - NA Sexual History Question Answer Notes Had sex in the past 12 months (vaginal, oral, or anal)? Yes with Both Men and Women Use protection? No Have you ever had a Sexually transmitted disease ? No Last menstrual period 06/22/2025 AUDIT-C (Standard) Question Answer Notes Did you have a drink contain ing alcohol in the past year? Yes How often did you have a dri nk containing alcohol in the past year? Monthly or less (1 point) How many drinks did you have on a typical day when you were drinking in the past year? 1 or 2 drinks (0 point) How often did you have six o r more drinks on one occasion in the past year? 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 Problem Chronic migraine without aura, non-refractory (disorder) (485558475686944) Migraine without aura, not intractable, without status migrainosus (G43.009) Active confirmed Problem Mild intermittent asthma (445624484) Mild intermittent asthma, uncomplicated (J45.20) Active confirmed Problem COVID-19 (517060331) COVID-19 (U07.1) Active confirmed Vital Signs Temperature 97.8 degrees Fahrenheit 07/09/2025 Blood pressure diastolic 84 mm Hg 07/09/2025 Height 62 in 07/09/2025 Blood pressure systolic 140 mm Hg 07/09/2025 Weight 223 lbs 07/09/2025 BMI 40.78 kg/m2 07/09/2025 Encounters Encounter Location Date Provider Diagnosis [facility] [address] [facility] [address] [address] 07/01/2025 KELVIN BROUSSARD Encounter for gynecological examination (general) (routine) without abnormal findings Z01.419 ; Encounter for screening mammogram for malignant neoplasm of breast Z12.31 and Encounter for screening for human papillomavirus (HPV) Z11.[address] [address] 07/09/2025 KELVIN BROUSSARD Encounter for other general counseling and advice on contraception Z30.09 ; Other primary thrombophilia D68.59 ; Polycystic ovarian syndrome E28.2 and Elevated blood-pressure reading, without diagnosis of hypertension R03.[address] [facility] [address] [address] 07/10/2025 KELVIN BROUSSARD Assessments Encounter Date Diagnosis (ICD Code) Assessment Notes Treatment Notes Treatment Clinical Notes Section Notes 07/01/2025 Encounter for gynecological examination (general) (routine) without abnormal findings (ICD-10 - Z01.419) During the visit, the following areas of concern were addressed: Discussed cervical cancer screening with either cytology alone every 3 years or high risk HPV co-testing every 5 years as per ASCCP guidelines. Advised continued annual pelvic exams. Patient encouraged to increase her level of exercise. SBE technique encouraged/taught. Patient reminded when annual mammogram is due. Patient encouraged to keep colon screening up to date. 07/01/2025 Encounter for screening mammogram for malignant neoplasm of breast (ICD-10 - Z12.31) 07/09/2025 Encounter for other general counseling and advice on contraception (ICD-10 - Z30.09) She is most interested at this time in trialing a pill. She is a bit concerned about a potential drop in libido, but feels this option is a good starting point. We discussed that any hormonal option that impacts ovulation is likely to reduce libido, so if decreased libido is a problem with the pill, her best bet would likely be an IUD. Hormone-releasing IUDs in general, and Mirena in particular, are the recommended IUDs to choose, as she has intermittently heavier/more painful menses, and she never wishes to be . A Mirena would likely protect her until menopause and will have the biggest impact on lightening her menstrual flow. She will call back for IUD if needed. 07/09/2025 Other primary thrombophilia (ICD-10 - D68.59) She has Factor V Leiden deficiency and a history of DVT and PE so estrogen-containing contraceptives are contraindicated 07/09/2025 Polycystic ovarian syndrome (ICD-10 - E28.2) Her periods are fairly regular, with variable flow month to month. A progesterone option for contraception will help reduce her menstrual flow and give protection to the endometrium. 07/01/2025 Encounter for screening for human papillomavirus (HPV) (ICD-10 - Z11.51) 07/09/2025 Elevated blood-pressure reading, without diagnosis of hypertension (ICD-10 - R03.0) Today's blood pressure is elevated, which would be another contraindication to estrogen-containing contraceptives. 07/09/2025 Other 43 minutes were spent on the day of the visit reviewing and prepping the chart, obtaining the HPI, examining the patient, counseling the patient on the diagnosis, ordering/refilling medications, ordering tests and procedures and documenting this encounter. Plan Of Treatment Pending Test Test Name Order Date MM Digital Screening Mammogram 3D 2024 Next Appt Details Provider Name:KELVIN Chung, 07/15/2026 08:30:00 AM, [address], [address], [place], [address], Insurance Providers Payer Name Payer Address Payer Phone Subscriber Number Group Number Insured Name Patient Relationship to Insured Coverage Start Date Coverage End Date [facility] [address] [place] [address] [phone] [id number] NAYANA FIGUEROA Self - patient is the insured Medical (General) History Medical History History ICD Code Migraine without aura, not intractable, without status migrainosus G43.009 Mild intermittent asthma, uncomplicated J45.20 Dense breasts, unspecified R92.30 Polycystic ovarian syndrome E28.2 Other primary thrombophilia D68.59 COVID-19 U07.1 Hospitalization History Reason Date(Month/Year) BREATHING DIFFICULTIES 07/2023
--- OUTSIDE RECORDS SUMMARY | 2025-07-19 08:18 | XMS_ITS | Encounter Summary ---
Author Organization [facility] Address [address] [place] [address] Encounters * Online digital evaluation and management service, for an established patient, 21+ minutes during the 7 days, 21+ minutes with Beth Acevedo at [facility] on 2024-12-14 49F seen for snoring, lung nodule, AWV and Class 3 Obesity (BMI >40) We evaluated Eladia Saldana for Annual Wellness Visit, snoring, Lung Nodule, and Class 3 Obesity (BMI >40) during this period from 2024-12-14 to 2024-12-21. A log history of our dialog is attached below. PHR was confirmed per below. 1. Body mass index [BMI] 40.0-44.9, adult (Z68.41) 2. Snoring (R06.83) REFERRAL CARE PLAN SOAP NOTE: SUBJECTIVE: Condition or symptom for referral: Daytime fatigue and snoring How long ago condition started: Years ago Previous treatments and/or evaluation: None OBJECTIVE: ASSESSMENT & PLAN: - Referral placed - Referral follow-up scheduled: 45 days 3. Lung Nodule (R91.1) CHRONIC CARE PLAN SOAP NOTE SUBJECTIVE: Patient presenting for management of: Lung nodule This was noted during patient's hospital stay in July 2023 that she had a lung nodule on her chest CT that needed follow up on. She has not had her repeated chest CT due to lack of insurance. We have requested records, but still have not received them. OBJECTIVE: Vital signs on ___ /this week: Labs/tests completed on ___ showed: I have reviewed and updated the problem and medication list and assessed the patient's pertinent positives and negatives as outlined in the intake titled bronchitis/PNA on 12/07/2024 ASSESSMENT & PLAN: Lung nodule Plan: 1. Will proceed with repeat chest CT w/ out contrast. Will attempt to get hospital records again for comparison of chest CT in Jul 2023 Follow-up interval and reason/type: imaging reminder 4. Class 3 Obesity (BMI >40) (E66.813) alcohol swabs Zepbound 2.5 mg/0.5 mL subcutaneous pen injector Video visit date: 12/14/24 Start time: 9:51 End time: 9:57 OBESITY CARE PLAN SOAP NOTE SUBJECTIVE: Patient presenting for management of: Obesity Has tried health apps like weight watchers and tracking calories in [employer], reduced carbs, eating gluten-free diet. No sugary foods or candy, drinks coffee with sugar free creamer. BMI=40.74. Hasn't tried weight loss meds. States she has been working on lifestyle changes her whole life, but more consistently in the past 3-4 months. Exercise includes 5000 steps per day, walking 20-30 mins with her dogs daily. Has been doing this for >6 months. HR=87, no BP reported. Has hx of PCOS, has [employer] INTER[employer] appt coming up for f/u. Has hx prediabetes, recently re-diagnosed by us (case open). +snoring. +depression/anxiety. States she can't use OCP due to hx of blood clots. States they were more than 15 years ago, had 2 incidents of DVT (states they were pulmonary) and was on heparin. Hasn't seen hematology and hasn't had high plts before. Diet recall: - breakfast is coffee with sugar free syrup for flavor or sugar free creamer andoats overnight oatmeal Lunch is usually a can of tuna with arora about 1-2 oz of sharp cheddar with rice or on a egg wrap. Sometimes it???s a protein gf wrap with chicken or chicken salad and spinach.With a side of quest protein chips I have a [place] meat stick or gluten free protein bar mid aftern oon. I usually have the unreal dark chocolate mini bar a few afternoons a week and then dinner is gluten free pasta with sauce and veggies/ taco bowls/ burrito bowls or chicken tenders in the air fryer with rice or mashed potato???s. I snack on fruit or do a peanut butter on gluten free Kazakh muffin or have applesauce and gluten free crackers for snacks depending on how busy my day has been. I do have protein shakes occasionally and have used those as creamer for my coffee Patient has consistently followed the following lifestyle changes for 6 months: Given childbearing potential, current control is: none OBJECTIVE: Weight confirmed via video: 230lbs BMI: 42.06 BP: 128/87 Labs collected on 12/10/24. Tchol 201(H), HDL 57, TG 139, LDL 119(H) CMP wnl A1C 5.8%(H) TSH 2.76 CBC with platelets 432(H) EXAM: Patient was well appearing, in no distress, with a normal mood and affect, and gave clear clinical history. Speech was clear, without aphasia or dysarthria. Patient appearance consistent with reported weight. Respiratory effort and neurologic status were grossly normal. I have reviewed and updated the problem and medication list and assessed the patient's pertinent positives and negatives as outlined in the intake titled Weight Loss Desired on 12/12/24. ASSESSMENT & PLAN: Diagnosis: Class 3 Obesity, currently on metformin, which we just prescribed Complicated by: prediabetes, elevated BP, hyperlipidemia Initial video visit (on assuming/initiating care) with observed weight was completed on 12/14/24 I called [facility] line and [facility] said that GLP-1 could be approved with HLD or possibly Plan: 1. Plan is to start Mounjaro, as it may be covered since she has elevated cholesterol and hx DVT/PE, but we need to confirm control method (can't be on hormonal due to hx VTE) *MED NOT SENT, PAnot initiated, awaiting reply on control) 2. Will await her reply. 3. The importance of ongoing lifestyle change was discussed. Patient plans to continue lifestyle changes. 4. prevention and risks while on medication were discussed. control plan is: Awaiting reply Follow-up interval and reason/type: Awaiting reply on contraception. Can send Mounjaro and start prior auth once she confirms. Written by Beth Acevedo on 2024-12-14
--- OUTSIDE RECORDS SUMMARY | 2025-07-19 08:18 | XMS_ITS | Encounter Summary ---
Author Organization [facility] Address [address] [place] [address] Care Team Providers Care Administration Intern Name Role Phone Allyssa Wilson MD Primary Care Provider Unava Norman Garcia MD Primary Care Provider + Norman Pfeiffer MD Primary Care Provider + Encounter Details Date Type Department Care Team Description 05/01/2012 Release of Information Medical Records [address] [place] [id number] Abstract, Provider Social History Tobacco Use Types Packs/Day Years Used Date Smoking Tobacco: Never Smokeless Tobacco: Never Alcohol Use Standard Drinks/Week Comments No 0 (1 standard drink = 0.6 oz pur e alcohol) Sex Assigned at Date Recorded Female 03/28/2021 1:11 PM E DT documented as of this encounter Plan of Treatment Not on file documented as of this encounter Visit Diagnoses Not on filedocumented in this encounter Care Teams Administration Intern Relationship Specialty Start Date End Date Allyssa Wilson MD PCP - General Internal Medicine 01/01/12 05/02/22 Norman Pfeiffer MD [address] [place] [phone] PCP - General Internal Medicine 05/04/22 Norman Pfeiffer MD [address] [place] [address] PCP - General Internal Medicine 05/03/22 05/03/22 documented as of this encounter
--- OUTSIDE RECORDS SUMMARY | 2025-07-19 08:18 | XMS_ITS | Encounter Summary ---
Author Organization [facility] Address [address] [place] [address] Care Team Providers Care Resource Specialist Name Role Phone Allyssa Wilson MD Primary Care Provider Unava ilable Norman Pfeiffer MD Primary Care Provider + Norman Pfeiffer MD Primary Care Provider + Reason for Visit * Reason Onset Date Comments Dough Puncher Feedback 03/05/2012 Cynthia Restrepo i Encounter Details Date Type Department Care Team Description 03/05/2012 Telephone Medicine/Pediatrics - [address] [phone] Allyssa Wilson MD Dough Puncher Feedback (Cynthia Lyles) Social History Tobacco Use Types Packs/Day Years Used Date Smoking Tobacco: Never Smokeless Tobacco: Never Alcohol Use Standard Drinks/Week Comments No 0 (1 standard drink = 0.6 oz pur e alcohol) Sex Assigned at Date Recorded Female 03/28/2021 1:11 PM E DT documented as of this encounter Miscellaneous Notes * Telephone Encounter - Natalie Sneed - 03/05/2012 4:24 PM EDT Notes from 03/02/12, Dr. Conklin, and order faxed to Dr. Lyles at [phone]. * Telephone Encounter - Mare Sheets - 03/05/2012 2:19 PM EDT No insurance referral required per patient's insurance. Diagnosis-headache/migraine Letter with appointment information mailed to patient. Fax to [phone]. Notes and Order documented in this encounter Plan of Treatment Not on file documented as of this encounter Visit Diagnoses Not on filedocumented in this encounter Care Teams Resource Specialist Relationship Specialty Start Date End Date Allyssa Wilson MD PCP - General Internal Medicine 01/01/12 05/02/22 Norman Pfeiffer MD [address] [place] [address] PCP - General Internal Medicine 05/04/22 Norman Pfeiffer MD [address] [place] [phone] PCP - General Internal Medicine 05/03/22 05/03/22 documented as of this encounter
--- OUTSIDE RECORDS SUMMARY | 2025-07-19 08:18 | XMS_ITS | Clinical Summary ---
Author Organization [facility] Address [address] [place] [address] Care Team Providers Care Senior Telecommunications Technician Name Role Phone Unavailable Primary Care Provider [...] series) 1994 COVID-19 Vaccine (2023-2 5 season) 2025 Pneumococcal Vaccine: Pediat charo (0-5 Years) and At-Risk Patients (6 to 49 Years) Aged Out No longer eligible b ased on patient's age to complete this topic
--- OUTSIDE RECORDS SUMMARY | 2025-07-19 08:19 | XMS_ITS | Encounter Summary ---
Author Organization [facility] Address [address] [place] [address] Care Team Providers Care Microsoft Bi Consultant Name Role Phone Batsheva Chen MD Primary Care Provider Allyssa Contreras MD Primary Care Provider Norman Wallace MD Primary Care Provider + Norman Pfeiffer MD Primary Care Provider + Reason for Visit * Reason Comments Back Pain Encounter Details Date Type Department Care Team Description 02/16/2004 Telephone Adult [address] [address] Hellen Walters PA-C Back Pain Social History Tobacco Use Types Packs/Day Years Used Date Smoking Tobacco: Never Assessed Sex Assigned at Date Recorded Female 03/28/2021 1:11 PM E DT documented as of this encounter Miscellaneous Notes * Telephone Encounter - 02/16/2004 3:32 PM EDTCALL RECEIVED. Contact: SELF [phone] TRIAGE CALLS- NELSON SYMPTOMS PT IS PRESENTING:BACK PAIN TRAVELING DOWN LEFT LEG. PAINFUL TO TOUCH, PAINFUL TO MOVE. HOW LONG HAS PT HAD THESE SYMPTOMS?: 4 TO 5 DAYS BUT GETTING WORSE. NAME OF PT'S PCP: DR. BATSHEVA CHEN documented in this encounter Plan of Treatment Not on file documented as of this encounter Visit Diagnoses Not on filedocumented in this encounter Care Teams Microsoft Bi Consultant Relationship Specialty Start Date End Date Batsheva Chen MD PCP - General 08/02/00 12/31/11 Allyssa Wilson MD PCP - General Internal Medicine 01/01/12 05/02/22 Norman Pfeiffer MD [address] [place] [address] [phone] PCP - General Internal Medicine 05/04/22 Norman Pfeiffer MD [address] [place] [phone] PCP - General Internal Medicine 05/03/22 05/03/22 documented as of this encounter
--- OUTSIDE RECORDS SUMMARY | 2025-07-19 08:19 | XMS_ITS | Encounter Summary ---
Author Organization [facility] Address [address] [place] [address] Care Team Providers Care Fruit Harvester Machine Operator Name Role Phone Allyssa Wilson MD Primary Care Provider Unava ilNorman Blunt MD Primary Care Provider + Norman Pfeiffer MD Primary Care Provider + Reason for Visit * Reason Onset Date Comments Letter 06/04/2016 Encounter Details Date Type Department Care Team Description 06/04/2016 Telephone Medicine/Pediatrics - [place] [address] [place] [phone] Allyssa Wilson MD Letter Social History Tobacco Use Types Packs/Day Years Used Date Smoking Tobacco: Never Smokeless Tobacco: Never Alcohol Use Standard Drinks/Week Comments No 0 (1 standard drink = 0.6 oz pur e alcohol) Sex Assigned at Date Recorded Female 03/28/2021 1:11 PM E DT documented as of this encounter Miscellaneous Notes * Telephone Encounter - Yvonne Tello - 06/04/2016 11:50 AM EDT PE scheduled 06/05/16 at 1:30 pm * Telephone Encounter - Samantha Chen L.P.N. - 06/04/2016 11:46 AM EDT Last PE was 2011 needs to have a PE * Telephone Encounter - Yvonne Tello - 06/04/2016 10:19 AM EDT Letter requested for: Work Reason for letter: She needs a letter containing when she had her last physical, and that she's up to date on her immunizations. Specific notations needed in body of letter: Date of her last physical and immunizations. Date needed for completion: By 11 today. When completed: Will picking machine operator helper-call when completed: documented in this encounter Plan of Treatment Not on file documented as of this encounter Visit Diagnoses Not on filedocumented in this encounter Care Teams Fruit Harvester Machine Operator Relationship Specialty Start Date End Date Allyssa Wilson MD PCP - General Internal Medicine 01/01/12 05/02/22 Norman Pfeiffer MD [address] [place] [id number] PCP - General Internal Medicine 05/04/22 Norman Pfeiffer MD [address] [place] [phone] PCP - General Internal Medicine 05/03/22 05/03/22 documented as of this encounter
--- OUTSIDE RECORDS SUMMARY | 2025-07-19 08:19 | XMS_ITS | Encounter Summary ---
Author Organization [facility] Address [address] [place] [address] Care Team Providers Care Septic Tank Service Technician Name Role Phone Allyssa Wilson MD Primary Care Provider Unava Norman Garcia MD Primary Care Provider + Norman Pfeiffer MD Primary Care Provider + Encounter Details Date Type Department Care Team Description 06/06/2016 Orders Only Medicine/Pediatrics - [address] [phone] Hillary Patel PA-C Elevated sed rate (Primary Dx) Social History Tobacco Use Types Packs/Day Years Used Date Smoking Tobacco: Never Smokeless Tobacco: Never Alcohol Use Standard Drinks/Week Comments No 0 (1 standard drink = 0.6 oz pur e alcohol) Sex Assigned at Date Recorded Female 03/28/2021 1:11 PM E DT documented as of this encounter Plan of Treatment Scheduled Orders Name Type Priority Associated Diagnoses Orde r Schedule C-REACTIVE PROTEIN Lab Routine Elevated sed rate Expected: 06/06/2016, Expires: 06/06/2017 RBC SEDIMENTATION RATE, NON-AUTO Lab Routine Elevated sed rate Expected: 06/06/2016, Expires: 06/06/2017 AUTOMATED HEMOGRAM PLATELET COUNT Lab Routine Elevated sed rate Expected: 06/06/2016, Expires: 06/06/2017 DIFFERENTIAL WBC COUNT Lab Routine Elevated sed rate Expected: 06/06/2016, Expires: 06/06/2017 documented as of this encounter Visit Diagnoses Diagnosis Elevated sed rate- Primary Elevated sedimentation rate documented in this encounter Care Teams Septic Tank Service Technician Relationship Specialty Start Date End Date Allyssa Wilson MD PCP - General Internal Medicine 01/01/12 05/02/22 Norman Pfeiffer MD [address] [place] [phone] PCP - General Internal Medicine 05/04/22 Norman Pfeiffer MD [address] [place] [phone] PCP - General Internal Medicine 05/03/22 05/03/22 documented as of this encounter
--- OUTSIDE RECORDS SUMMARY | 2025-07-19 08:19 | XMS_ITS | Encounter Summary ---
Author Organization [facility] Address [address] [place] [address] Care Team Providers Care Manager Social Services Name Role Phone Allyssa Wilson MD Primary Care Provider Unava Norman Garcia MD Primary Care Provider + Norman Pfeiffer MD Primary Care Provider + Encounter Details Date Type Department Care Team Description 06/11/2016 Release of Information Medical Records [address] [place] [id number] Abstract, Provider Social History Tobacco Use Types [...] on filedocumented in this encounter Care Teams Manager Social Services Relationship Specialty Start Date End Date Allyssa Wilson MD PCP - General Internal Medicine 01/01/12 05/02/22 Norman Pfeiffer MD [address] [place] [id number] PCP - General Internal Medicine 05/04/22 Norman Pfeiffer MD [address] [place] [phone] PCP - General Internal Medicine 05/03/22 05/03/22 documented as of this encounter
--- OUTSIDE RECORDS SUMMARY | 2025-07-19 08:20 | XMS_ITS | Encounter Summary ---
Author Organization [facility] Address [address] [place] [address] Care Team Providers Care Extermination Supervisor Name Role Phone Allyssa Wilson MD Primary Care Provider Unava ilable Norman Pfeiffer MD Primary Care Provider + Norman Pfeiffer MD Primary Care Provider + Encounter Details Date Type Department Care Team Description 01/21/2017 Telephone Physiatr - [address] [address] Nikolai Ingram DO Social History Tobacco Use Types Packs/Day Years [...] on filedocumented in this encounter Care Teams Extermination Supervisor Relationship Specialty Start Date End Date Allyssa Wilson MD PCP - General Internal Medicine 01/01/12 05/02/22 Norman Pfeiffer MD [address] [place] [id number] PCP - General Internal Medicine 05/04/22 Norman Pfeiffer MD [address] [place] [id number] PCP - General Internal Medicine 05/03/22 05/03/22 documented as of this encounter
--- OUTSIDE RECORDS SUMMARY | 2025-07-19 08:20 | XMS_ITS | Encounter Summary ---
Author Organization [facility] Address [address] [place] [address] Encounters * New patient, Wellness evaluation, pt age 40-64 with Saumya Yadav at [employer] on seen for annual wellness visit, and evaluation of various concerns, including:snoringElevated Blood Pressure (Without Hypertension)Class 3 Obesity (BMI >40)PrediabetesFood AllergyAsthma, Chronic We evaluated Eladia Saldana for snoring, Elevated Blood Pressure (Without Hypertension), Class 3 Obesity (BMI >40), Prediabetes, Food Allergy, Annual Wellness Visit, and chronic asthma during this period from 2024-12-07 to 2024-12-14.A log history of our dialog is attached below. PHR was confirmed per below. 1. Encounter for general adult medical examination without abnormal findings (Z00.00) Video visit date: 12/14/24 Start time: 9:51 End time: 9:57 OBESITY CARE PLAN SOAP NOTE SUBJECTIVE: Patient presenting for management of: Obesity Has tried health apps like weight watchers and tracking calories in MyFitnessPal, reduced carbs, eating gluten-free diet. No sugary [...] BP reported. 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 Has hx [...] of quest protein chips I have a [place] meat stick or gluten free protein bar mid aftern oon. I usually have the unreal dark chocolate mini bar a few afternoons a week and then dinner is gluten free pasta with sauce and veggies/ taco bowls/ burrito bowls or chicken tenders in the air fryer with rice or mashed potato???s. I snack on fruit or do a peanut butter on gluten free [place] muffin or have applesauce and gluten free [...] weight was completed on 12/14/24 I called [facility] line and [facility] said that GLP-1 could be approved with [...] and start prior auth once she confirms. 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 Reports being a in a monogamous same sex marriage for the last 20 yrs. Not currently sexually active but if the occasion occurs have condoms for control. Plan: Trial of Zepbound 2.5mg weekly x 4 weeks, PA initiated UPDATE Zepbound not covered, but pt states Wegovy is covered w/ PA per insurance. Changed PA request to Wegovy 0.25mg weekly, not yet prescribed (awaiting PA response) 2. Elevated blood-pressure reading, without diagnosis of hypertension (R03.0) ACUTE CARE PLAN SOAP NOTE SUBJECTIVE: Patient presenting with: elevated BP reading 49F w/ class 3 obesity, preDM, PCOS presents w/ a single mildly elevated BP reading of 128/87. She has no other readings for comparison, and has not previously been told she has elevated BP. Engages in minimal physical activity, snores, +FHx HTN <50 OBJECTIVE: Vital signs 12/12/24: BP 128/87 HR 80 BMI 42.06 I have reviewed and updated the problem and medication list and assessed the patient's pertinent positives and negatives as outlined in the intake titled High Blood Pressure without a Diagnosis of Hypertension on 12/12/24. ASSESSMENT & PLAN: Clinical picture indicative of this diagnosis: mildly elevated BP w/o prior dx of HTN Plan: 1. Plan for routine monitoring of BP over next 3 mos 2. Revisiting eval of snoring to see if sleep apnea screening needed Follow-up interval and reason/type: Checking In - 84 days 3. Mild intermittent asthma, uncomplicated (J45.20) albuterol sulfate HFA 90 mcg/actuation aerosol inhaler Video visit date: 12/07/2024 Start time: 8:04 AM End time: 8:20 AM EXAM: Patient was well appearing, in no distress, with a normal mood and affect, and gave clear clinical history. Speech was clear, without aphasia or dysarthria. Respiratory effort and neurologic status were grossly normal. CHRONIC CARE PLAN SOAP NOTE SUBJECTIVE: Patient presenting for management of: Asthma Patient is a 49-year-old female who presents today requesting to establish care. She reports a history of asthma since she was a child. She's most concerned with being hospitalized in July 2023 for an asthma exacerbation. Patient reports that she was sick at the time and her stats would not comeup in the ER. She was negative for flu, Covid and RSV at the time, but ended up hospitalized for eight days for inpatient asthma exacerbation. She report reports during that [facility] that she had multiple spots that needed followed up on. She's been without insurance untilnow. I would like to have her chest CT repeated. She's also has not been able to afford her maintenance inhaler. She's primarily been using albuterol very sparingly. She was previously prescribed Symbicort. Her typical asthma symptoms are shortness of breath, chest tightness, and cough. They only happen during your after exercise or when she gets sick. She does have allergies and is overweight. She's confident using inhalers. She does have cost concerns related to her inhalers. OBJECTIVE: Vital signs on ___ /this week: Labs/tests completed on ___ showed: I have reviewed and updated the problem and medication list and assessed the patient's pertinent positives and negatives as outlined in the intake titled asthma intake on 12/07/2024 ASSESSMENT & PLAN: Intermittent asthma Plan: 1. Continue Albuterol prn for now, pt is not requiring it often. Discussed may need to add in LABA if symptoms become more frequent/inc use of albuterol Refill albuterol 1-2 puffs q4-6hrs prn wheezing # 1 200cannister, 1 RF Follow-up interval and reason/type: med refill 4. Snoring (R06.83) 49F w/ BMI 42.06 reports chronic snoring and daytime fatigue, as well as frequent nighttime waking.No prior screening for KIMBERLY. No tx tried. BP mildly elevated. ESS= 13 Patient was referred for sleep study to r/o KIMBERLY. 5. Prediabetes (R73.03) HbA1C Accu-Chek Abby Control Soln solution alcohol swabs Accu-Chek Combo System kit Accu-Chek Softclix Lancing Device+Lancets kit Accu-Chek Abby Plus test strips metformin 500 mg tablet CHRONIC CARE PLAN SOAP NOTE SUBJECTIVE: 49F Patient presenting for management of: prediabetes. Was told years ago that she had prediabetes, for which she took metformin, stopped due to SE headaches. She was dealing with other medical conditions, namely severe back pain, and taking medications that that could have been contributing to headaches as well. Headaches are not currently an issue for her. Lifestyle modifications for >1 year. She is struggling to lose weight even with diet modification and exercise. She does experience intermittent tingling in hands and feet x 15 years. OBJECTIVE: HT 63 Wt 230 lbs, BMI 40.7 Labs collected on 12/10/24. CMP wnl A1C 5.8%(H) I have reviewed and updated the problem and medication list and assessed the patient's pertinent positives and negatives as outlined in the intake titled Type 2 diabetes on 12/12/24 ASSESSMENT & PLAN: Diagnosis +/- stage: Prediabetes - Complicated by class 3 obesity Plan: 1. Start metformin 500mg daily, #30, 0RF. Through shared decision making we discussed the risk/benefit of restarting metformin given her past experience of possible SE headaches. She is interested inrestarting metformin to slow progression to diabetes and possible weight loss benefit. We will start low dose and closely follow up and re-evaluate if she experiences SE headache. 2. Reinforce lifestyle, discuss in greater detail within new case for Obesity 3. Peripheral tingling: monitor for changes Follow-up interval and reason/type: days for side effects and refill. Addendum to above SOAP: pt states that she used a glucometer the last time she was prediabetic and is requesting that we send one again. Will send 6. Obesity, class 3 (E66.813) CMP (Comprehensive Metabolic Panel) CBC TSH w/ Reflex FT4 HbA1C Lipid Panel CBC w diff Video visit date: 12/07/2024 Start time: 8:04 AM End time: 8:20 AM SUBJECTIVE: The patient is being seen today for an annual wellness & preventive health visit. I have reviewed and updated the problem and medication list and assessed the patient's pertinent positives and negatives as outlined in the intake titled Annual Wellness Visit completed by patient on12/07/2024 on 12/07/2024 Clinical summary: 49 year old female presents to establish care. Patient is requesting a referral to see an allergistand Johnathan. She was hospitalized in July 2023 for an asthma exacerbation. It was mentioned at the time that it could've been related to something she was exposed to/ allergen. She was negative for Covid, flu, and RSV and they could not narrow it down to a virus that caused her asthma exacerbation. She was hospitalized for eight days. It was also noted at that time that she had some spots on her lungs that she will need a repeat chest CT She has not had insurance until now is the reason why she has not followed up with us. She is also had some issues with gluten. She reports that anytime she touches it or she's around it. She breaks out in hives. This is another reason why she wants to see an dressmaking teacher and Johnathan. She's also overdue for a routine colonoscopy. PMH: See problem list Social History: - Smoker: N - EtOH amount: N - Exercise: physically active throughout the day - Drug use: N Family History: - Celiac, COPD, Diabetes type 2 - Pertinent negatives as outlined in AWV intake OBJECTIVE: Vital signs on 12/07/2024 this week: - BP ___, HR ___ - BMI 40.74 PHQ2 on intake date: 12/07/2024 EXAM: Patient was well appearing, in no distress, with a normal mood and affect, and gave clear clinical history. Speech was clear, without aphasia or dysarthria. Respiratory effort and neurologic status were grossly normal. Preventative Screening Results and Dates: MMG and PAP over 5 years ago See history as outlined in AWV intake ASSESSMENT & PLAN: 89year old here for AWV with the following chronic conditions: asthma, PCOS Provided general health counseling during the video. We discussed the following lifestyle changes: Preventative Screening Plan: - Patient will request records from prior screenings for chest CT from [facility] in [place] to determine next screening interval/next steps in management. will need repeat chest CT - Will order: CMP, A1C, TSH w/ reflex, Lipids - Will open new cases for the following preventative screening: MMG, PAP, colonoscopy/EGD Vaccine Plan: -The patient is up to date with all recommended vaccines. Follow-up interval and reason/type: lab reminder 7. Urticaria, unspecified (L50.9) CHRONIC CARE PLAN SOAP NOTE SUBJECTIVE: Patient presenting for management of: possible gluten allergy. Patient is a 49-year-old female who presents today to discuss a possible gluten allergy. Patient isconcerned she may have celiac disease. For the last year and a half anytime she comes into contact with gluten she'll have severe abdominal pain and diarrhea. She reports that if she touches it, she will break out hives. She report she's even had to change her dog food to gluten-free food because if she touches it, she will break out in hives. She doesn't have any chest pain or shortness of breath when this happens. She wanted to follow up on the sooner but didn't have insurance until recently. I have reviewed and updated the problem and medication list and assessed the patient's pertinent positives and negatives as outlined in the intake titled allergy treatment on 12/07/2024 ASSESSMENT & PLAN: Possible gluten allergy, patient has hives when she touches food with gluten Plan: 1. Will refer to dressmaking teacher for further evaluation Follow-up interval and reason/type: non urgent referral Written by Saumya Yadav on 2024-12-07
--- OUTSIDE RECORDS SUMMARY | 2025-07-19 08:20 | XMS_ITS | Clinical Summary ---
Author Organization [facility] Address [address] [place] [address] Phone Care Team Providers Care Battery Technician Name Role Phone Norman Pfeiffer MD Primary [...] syndrome) 04/28/2012 Migraine 03/03/2012 Obesity 01/03/2012 Immunizations Immunization Administration Dates Next Due Hepatitis B (Fdtnhca-P-Tvrio , Recombivax HB-Adult) 19yo and older 09/30/2003,08/31/2003 [...] rediabetes, pacemaker, afib Paternal Grandmother (Age 83) C OPD; hospice care Social History Tobacco Use Types [...] Last Done Comments Breast Cancer Screening 1975 Colorectal Cancer Screening: Colonoscopy 1975 Hepatitis B Vaccines (3 of 3 - 19+ 3-dose series) 02/29/2004 09/30/2003, 08/31/2003 Cervical Cancer Screening: P ap Smear 07/16/2019 07/16/2016, 07/16/2016 DTaP,Tdap,and Td Vaccines (3 - Td or Tdap) 01/13/2022 01/14/2012, 08/31/2003 HIV Screening 09/22/2022 Hepatitis C Screening 09/22/2022 Social Influencers of Health Screening 09/22/2022 Depression Screening 10/14/2024 COVID-19 Vaccine (1 - 2023-2 5 season) 2025 Influenza Vaccine (#1) 2025 09/11/2021 Cholesterol Screening (Lipid Panel) 03/28/2026 03/28/2021 RSV Immunization Adult Patients (1 - 1-dose 75+ series) 2050 HIB Vaccines Aged Out No longer eligi [...] on patient's age to complete this topic Pneumococcal Vaccine: Pediatrics (0 to 5 Years) [...] Most Recently Relevant to Health Maintenance Insurance [facility] Care Teams Battery Technician Relationship Specialty Start Date End Date Norman Pfeiffer MD [address] [facility], [place] PCP - General Internal Medicine 05/04/22
--- OUTSIDE RECORDS SUMMARY | 2025-07-19 08:20 | XMS_ITS | Encounter Summary ---
Author Organization [facility] Address [address] [place] [address] Encounters * Online digital evaluation and management service, for an established patient, 21+ minutes during the 7 days, 21+ minutes with Meli Alec at [facility] on 2025-04-02 49F was evaluated for history of recurrent migraines without aura. Abortive and prophylactic medications prescribed. Follow up scheduled. We evaluated Eladia Saldana for Prediabetes during this period from 2025-04-02 to 2025-04-09. A log history of our dialog is attached below. PHR was confirmed per below. 1. Unknown (E66.813) 2. Prediabetes (R73.03) HbA1C CHRONIC CARE PLAN SOAP NOTE SUBJECTIVE: Patient [...] minimal d/t fatigue and schedule limitations. Pt reports that psychiatrist recommended against contrave as does nt think it would be good option.She is currently on wellbutrin and now topamax for headaches from wellbutrin. Wondering if needs tocontinue metformin or check labs again. OBJECTIVE: [facility] labs collected on 12/25/24. A1c 5.6 Labs collected on 12/10/24. CMP wnl A1C 5.8%(H) I have reviewed and updated the problem and medication list and assessed the patient's pertinent positives and negatives as outlined on 04/02/25. ASSESSMENT & PLAN: Diagnosis +/- stage: prediabetes - Complicated by class 3 obesity, elevated BP, PCOS Plan: 1. Cont metformin 500mg daily for now 2. Check A1c to determine if need to continue and continue for weight loss efforts Follow-up interval and reason/type: lab reminder Written by Meli Michael on 2025-04-02
--- OUTSIDE RECORDS SUMMARY | 2025-07-19 08:20 | XMS_ITS | Continuity of Care Document ---
Author Name [facility] Address [address] [place] [address] Organization Unknown Address [address] [place] [address] Medications No known medications Problems No known problems
--- OUTSIDE RECORDS SUMMARY | 2025-07-19 08:20 | XMS_ITS | Encounter Summary ---
Author Organization [facility] Address [address] [place] [address] Care Team Providers Care Portable Irrigation Operator Name Role Phone Allyssa Wilson MD Primary Care Provider Unava Norman Garcia MD Primary Care Provider + Norman Pfeiffer MD Primary Care Provider + Encounter Details Date Type Department Care Team Description 02/06/2014 Walk In Clinic Visit Medical Records [address] [place] [id number] Abstract, Provider Social History Tobacco Use Types [...] on filedocumented in this encounter Care Teams Portable Irrigation Operator Relationship Specialty Start Date End Date Allyssa Wilson MD PCP - General Internal Medicine 01/01/12 05/02/22 Norman Pfeiffer MD [address] [place] [phone] PCP - General Internal Medicine 05/04/22 Norman Pfeiffer MD [address] [place] [id number] PCP - General Internal Medicine 05/03/22 05/03/22 documented as of this encounter
--- OUTSIDE RECORDS SUMMARY | 2025-07-19 08:20 | XMS_ITS | Encounter Summary ---
Author Organization [facility] Address [address] [place] [address] Encounters * Text, 21+ min with Meli Michael at [employer] on 2025-02-09 49 yo female who had f/u for food allergies, breast lump, and snoring. We evaluated Eladia Saldana for breast lump, Lung Nodule, and elevated platelet count during this period from 2025-02-09 to 2025-02-16. A log history of our dialog is attached below. PHR was confirmed per below. 1. Localized enlarged lymph nodes (R59.0) REFERRAL CARE PLAN SOAP NOTE: SUBJECTIVE: Condition or symptom for referral: Azygos lymph node on recent CT scan How long ago condition started: 12/23/24 CT scan Previous treatments and/or evaluation: Pt reported previous lung nodule on CT of chest Jul 2023 while hospitalized. History:?? Pt was supposed to get follow up CT for lung nodule as noted above, but did not due to insurance, at time not insured so did not follow up, but now insured and done. OBJECTIVE: I have reviewed and updated the problem and medication list and assessed the patient's pertinent positives and negatives as outlined in the intake titled Bronchitis / Pneumonia on 12/07/24. 12/23/2024 CT CHEST W/OUT CONTRAST 2.7 x 1.7 cm Azygos lymph node was noted in body of report IMPRESSION: No acute cardiopulmonary abnormality. Single enlarged azygos lymph node of uncertain significance. No evidence of pulmonary nodule. No evidence of interstitial lung disease ASSESSMENT & PLAN: Diagnosis: Azygos lymph node of uncertain significance Plan: 1) Referral request to PSA placed for pulmonary 2) Pt states will also have roofing tile sorter look at CT scan results, discussed how to access it and let our staff know if unable to do so. Follow up:?? - Referral follow-up scheduled: 45 days 2. Person consulting for explanation of examination or test findings (Z71.2) 02/11/25 R Diagnostic mammogram: BIRADS 2, benign findings. 1. No mammographic or mammographic evidence to suggest malignancy. 2. At the site of palpable abnormality in the right breast upper outer quadrant a thick band of benign echogenic fibrograndular tissue is noted containing internal prominent benign fatty breast lobule. Recommendation: Continue with yearly screening mammography, do on/after 01/21/2026. 3. Thrombocytosis, unspecified (D75.839) Ferritin Iron (total) TIBC CHRONIC CARE PLAN SOAP NOTE SUBJECTIVE: Patient presenting for management of: elevated platelet count. pmhx of Dvt x2 and PE about 15 yearsago on separate occasions. Treated with heparin, patient reports was contributed to control and sedentary lifestyle after disk herniation. Recent blood work found persistently elevated platelets of 426 (prior 432). Referred to heme. 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 Place an order for iron studies- iron sat, ferritin and iron 2. If no evidence of iron deficiency, heme recommends to arrange in person consult Follow-up interval and reason/type: 2 weeks lab reminder Written by Meli Michael on 2025-02-09
--- OUTSIDE RECORDS SUMMARY | 2025-07-19 08:21 | XMS_ITS | Encounter Summary ---
Author Organization [facility] Address [address] [place] [address] Care Team Providers Care Cuff Setter Lockstitch Name Role Phone Norman Pfeiffer MD Primary Care Provider + Reason for Visit * Reason Onset Date Comments Medication 12/11/2022 Encounter Details Date Type Department Care Team Description 12/11/2022 Refill Gastroenterology - [place] [address] [place] [address] Hellen Gay MD [address] [place] [address] [phone] Medication Social History Tobacco Use Types Packs/Day Years [...] on filedocumented in this encounter Care Teams Cuff Setter Lockstitch Relationship Specialty Start Date End Date Norman Pfeiffer MD [address] [place] [address] [phone] PCP - General Internal Medicine 05/04/22 documented as of this encounter
--- OUTSIDE RECORDS SUMMARY | 2025-07-19 08:21 | XMS_ITS | Encounter Summary ---
Author Organization [facility] Address [address] [place] [address] Care Team Providers Care Associate Brand Manager Name Role Phone Allyssa Wilson MD Primary Care Provider Norman Wallace MD Primary Care Provider + Norman Pfeiffer MD Primary Care Provider + Reason for Visit * Reason Comments E-prescribe Rx Request Encounter Details Date Type Department Care Team Description 07/21/2021 Refill Medicine/Pediatrics - [place] [address] [place], [place] [phone] Susan Abrams PA-C [address] [place] [address] E-prescribe Rx Request Social History Tobacco Use Types Packs/Day Years Used Date Smoking Tobacco: Never Smokeless Tobacco: Never Alcohol Use Standard Drinks/Week Comments No 0 (1 standard drink = 0.6 oz pur e alcohol) Sex Assigned at Date Recorded Female 03/28/2021 1:11 PM E DT COVID-19 Exposure Response Date Recorded In the last month, have you been in contact with someone who was confirmed or suspected to have Coronavirus / COVID-19? No / Unsure 06/23/2021 9:42 AM EDT documented as of this encounter Miscellaneous Notes * Telephone Encounter - Rickey Jacinto - 07/21/2021 10:32 AM EDT Last OV 06/23/21. Upcoming Appt: NA. Exhausted RX in <1mo. Triage for excessive use? Lab Results Component Value Date NA 141 03/28/2021 K 4.4 03/28/2021 CO2 28 03/28/2021 CL 104 03/28/2021 BUN 11 03/28/2021 CREAT 0.75 03/28/2021 GLU 88 03/28/2021 CA 9.2 03/28/2021 GFR > 60 03/28/2021 * Telephone Encounter - Grace José Antonio - 07/21/2021 10:31 AM EDT Patient would like script to be: E-PRESCRIBED/FAXED TO PHARMACY WHEN WAS THE PATIENT'S LAST APPOINTMENT IN ADULT MEDICINE? 06/23/21 WHEN WAS THE LAST TIME THE PATIENT SAW THEIR PCP? Same as above Does patient have an upcoming appointment? no (THE MEDICATION REQUESTED IS ON THE MED LIST ABOVE) All of the medications requested were on the CURRENT MEDS list Did you check the Pharmacy information above?: YES Patient wants: 30 -day supply Is this a mail order prescription request ? NO If the refill is from a FAXED refill request what is the RX # listed on the fax? N/A Patients current insurance carrier is: Payor: [employer] FFS / Plan: [employer] ALLIANCE / Product Type: MEDICAID RISK documented in this encounter Plan of Treatment Not on file documented as of this encounter Visit Diagnoses Not on filedocumented in this encounter Care Teams Associate Brand Manager Relationship Specialty Start Date End Date Allyssa Wilson MD PCP - General Internal Medicine 3/20/12 7/20/22 Norman Pfeiffer MD [address] [place] [id number] PCP - General Internal Medicine 05/04/22 Norman Pfeiffer MD [address] [place] [address] [phone] PCP - General Internal Medicine 05/03/22 05/03/22 documented as of this encounter
--- OUTSIDE RECORDS SUMMARY | 2025-07-19 08:21 | XMS_ITS | Encounter Summary ---
Author Organization [facility] Address [address] [place] [address] Encounters * Online digital evaluation and management service, for an established patient, 21+ minutes during the 7 days, 21+ minutes with Umu Hammond at [facility] on [id number] saw Eladia for class 3 obesity and prediabetes. She let us know no GLP-1s are covered by her insurance. We filled her metformin.We discussed breast lump and screening for breast cancer, needs diagnostic breast imaging even if normal screening mmg.discussed colon cancer screening We evaluated Eladia Saldana for breast lump, Screening for Breast Cancer, and Screeningfor Colon Cancer during this period from 2025-01-21 to 2025-01-28.A log history of our dialog is attached below. PHR was confirmed per below. 1. Unspecified lump in unspecified breast (N63.0) Patient messaged asking if needs to complete diagnostic imaging as mammogram was negative. Advised that diagnostic mammogram and US are still recommended as she has a palpable lump. Written by Umu Hammond on 2025-01-21
--- OUTSIDE RECORDS SUMMARY | 2025-07-19 08:21 | XMS_ITS | Continuity of Care Document ---
Author Name Madison Doran Address [address] [place], [place] [id number] [place] [address] Organization Unknown Address [address] [place] [address] [address] [place] [address] Medications No known medications Problems No known problems
--- OUTSIDE RECORDS SUMMARY | 2025-07-19 08:21 | XMS_ITS | Encounter Summary ---
Author Organization [facility] Address [address] [place] [phone] Phone Care Team Providers Care Press Catcher Name Role Phone Pcp, Unknown Primary Care Provider Unavailabl e Encounter Details Date Type Department Care Team (Late st Contact Info) Description 03/22/2025 Procedure Pass [facility] Endoscopy Admitting Dept Virtual Department [address] [place], [place] [phone] Social History Tobacco Use Types Packs/Day Years Used Date Smoking Tobacco: Former Cigarettes Q uit: 1994 Smokeless Tobacco: Never Alcohol Use Standard Drinks/Week Comments Not Currently [...] on file Sexual Orientation Not on file documented as of this encounter Plan of Treatment Upcoming Encounters Date Type Department Care Team (Late st Contact Info) Description 01/10/2026 8:30 AM EDT Office Visit [facility] [address] [place] [phone] Unknown, Unknown, Ewa Zhou, SOCK BOARDER [address] [place] [address] victor [email or web address] documented as of this encounter Visit Diagnoses Not on filedocumented in this encounter Care Teams Press Catcher Relationship Specialty Start Date End Date Pcp, Unknown PCP - General 02/08/25 documented as of this encounter Additional Source Comments The information contained in this document represents components of the legal health record. It is not the complete legal health record.[facility]
--- OUTSIDE RECORDS SUMMARY | 2025-07-19 08:21 | XMS_ITS | Encounter Summary ---
Author Organization [facility] Address [address] [place] [address] Encounters * Text, 21+ min with Reinaldo Lopez at [employer] on 2025-04-12 49F was evaluated for history of recurrent migraines without aura. Abortive and prophylactic medications prescribed. Follow up scheduled. We evaluated Eladia Saldana for Migraine Intake and elevated platelet count during thisperiod from 2025-04-12 to 2025-04-19. A log history of our dialog is attached below. PHR was confirmed per below. 1. Thrombocytosis, unspecified (D75.839) 49y/o F with hx of provoked thrombosis (DVT, PE 15y ago, 3 occasions) presents for thrombocytosis. Lab results Drawn 02/23/2025 Iron 59 TIBC 320 Ferritin 45 Drawn 12/25/24 Plt 426 Drawn 12/10/24 Plt 432 Previous records: 2022 - , 48 A/P: Thrombocytosis, mild - Workup does not show iron deficiency - Review of hematology referral from Dr Servando rOtega states that she will need in person evaluation with hematology if iron deficiency is not identified. - Informed patient of results I have spent about 7-10 minutes to review labs, patient's medical history, allergies, medications, previous specialist consults, informing patient, and documenting results in chart. 2. Chronic migraine without aura, not intractable, without status migrainosus (G43.709) Topamax 25 mg tablet naratriptan 2.5 mg tablet CHRONIC CARE PLAN SOAP NOTE SUBJECTIVE: Patient presenting for management of chronic migraine w/o aura. Remote h/o migraines dx by neurologist and treated with both prophylactic and abortive treatment but has been off meds for many years with her last migraine about 10 years ago. However, migraines returned after starting wellbutrin prescribed by her psychiatrist which she would prefer to stay on if the migraines can be controlled. reports 1-2 migraines in the past 4 weeks on topamax but took naratriptan b/t 3- 7 times during the same time frame. OBJECTIVE: Vital signs on this week: 237 lbs, no BP, HR 105. Labs/tests completed on ___ showed: none I have reviewed and updated the problem and medication list and assessed the patient's pertinent positives and negatives as outlined in the intake titled Migraine f/u on 04/13/25. ASSESSMENT & PLAN: Recurrent migraine without aura in the setting of Wellbutrin which both the pt and her psychiatristwould like to continue if her migraine can be managed. migraines well-controlled on low dose topamax. Plan: 1. Continue topamax 25 mg daily #60 0RF 2. Refill Naratriptan # 10, 1 Refill Follow-up interval and reason/type: refill reminder 55 days Written by Reinaldo Lopez on 2025-04-12
--- OUTSIDE RECORDS SUMMARY | 2025-07-19 08:22 | XMS_ITS | Encounter Summary ---
Author Organization [facility] Address [address] [place] [address] Encounters * Online digital evaluation and management service, for an established patient, 21+ minutes during the 7 days, 21+ minutes with Gloria Carrillo at [facility] on 2025-03-01 49 yo female seen for Onychomycosis. Medication prescribed and f/u scheduled We evaluated Eladia Saldana for Food Allergy, Elevated Blood Pressure (Without Hypertension), elevated platelet count, Referral Request, and Nail abnormality during this period from 2025-03-01 to 2025-03-08. A log history of our dialog is attached below. PHR was confirmed per below. 1. Tinea unguium (B35.1) ciclopirox 8 % topical solution ACUTE CARE PLAN SOAP NOTE SUBJECTIVE: 49F presents that she went to have a nail kuwaiti change/fill yesterday and noticed a greenish-browndiscoloration of nail of left third finger. Denies pain to the area. Uses artificial nails/nail kuwaiti. Has not had an evaluation. Last had a fungal nail infection about ten years ago. OBJECTIVE: Photo sent on 03/01/25 showed: green-brown discoloration to nail of L third finger with some delamination of nail. Spares the matrix/lunula I have reviewed and updated the problem and medication list and assessed the patient's pertinent positives and negatives as outlined in the intake titled nail abnormality on 03/01/25. ASSESSMENT & PLAN: Clinical picture indicative of this diagnosis: onychomycosis of fingernail Plan: 1. ciclopirox 8% Apply to affected fingernail and adjacent skin once daily in combination with weekly nail trimming.Remove with alcohol every 7 days. Follow-up interval and reason/type: 30 day check-in 90 day refill Written by Gloria Carrillo on 2025-03-01
--- OUTSIDE RECORDS SUMMARY | 2025-07-19 08:22 | XMS_ITS | Encounter Summary ---
Author Organization [facility] Address [address] [place] [address] Encounters * Established patient, Video / office, 40-54 with Addie Gibson at [facility] on 2025-03-18 49F was evaluated for history of recurrent migraines without aura. Abortive and prophylactic medications prescribed. Follow up scheduled. We evaluated Eladia Saldana for Migraine Headache during this period from 2025-03-18 [id number]. A log history of our dialog is attached below. PHR was confirmed per below. 1. Migraine Headache (G43.909) Topamax 25 mg tablet naratriptan 2.5 mg tablet Video visit date: 03/18/2025 Start time: 3:19pm End time: 3:31pm ACUTE CARE PLAN SOAP NOTE SUBJECTIVE: Patient is a 49 y/o F with PMHx of DVT x 2, PE x 1 years ago (was on hormonal control at thattime), migraines (which have been well controlled for 10 years up until recently), anxiety/depression, class 3 obesity, PCOS, pre-DM, who presents with c/o new-onset migraines. She was recently started on wellbutrin 6 weeks ago by an outside psychiatrist and noticed a few mild headaches right afterstarting medication. Then 2 weeks ago had an intense 3 day migraine with light and noise sensitivity, nausea and intense pain unrelieved with OTC meds like caffeine, ibuprofen, aspirin, Mg. The only thing that helped was laying in a dark room and closing her eyes. She feels another migraine coming on now. Pt spoke with her psychiatrist who recommended to talk to PCP and find a way to manage migraines asshe does not want to come off wellbutrin, since it is helping with anxiety/depression symptoms. Pt has a migraine diagnosis by neurologist many years ago, has also had several head scans. She wason preventive medication (possibly topamax) and imitrex as abortive therapy. She is unsure how or why she stopped those medications but last migraine was 10 years ago and then 2 weeks ago. Current migraine symptoms are pain on both sides of head, throbbing pain, head or scalp sensitivityto touch and neck/shoulder pain. OBJECTIVE: VS: pt reports normal BP recently: range is 117/75 to 120/80 EXAM: Patient was well appearing, in no distress, with a normal mood and affect, and gave clear clinical history. Speech was clear, without aphasia or dysarthria. Respiratory effort and neurologic status were grossly normal I have reviewed and updated the problem and medication list and assessed the patient's pertinent positives and negatives as outlined in the intake titled Migraine Intake on 03/18/2025. ASSESSMENT & PLAN: Clinical picture indicative of this diagnosis: 1. Recurrent migraine without aura- symptoms started after starting wellbutrin 6 weeks ago, pt and her psychiatrist would like to keep wellbutrin and requested for pt to discuss management with PCP. Pt reports normal BP values. Plan: 1. Recommend starting naratriptan as abortive medication 2. Recommend trying topamax again as preventive medication- pt declines to wait and see if migraines will continue and would like to be proactive. 3. F/up in 4 weeks 4. Will consider increasing the dose of topamax to 50mg at next visit 5. If no improvement, pt will discuss stopping wellbutrin with her psychiatrist and trying a different medication. Follow-up interval and reason/type: 4 weeks Written by Addie Gibson on 2025-03-18
--- OUTSIDE RECORDS SUMMARY | 2025-07-19 08:22 | XMS_ITS | Encounter Summary ---
Author Organization [facility] Address [address] [place] [address] Encounters * Online digital evaluation and management service, for an established patient, 21+ minutes during the 7 days, 21+ minutes with Deondre Ayala at [facility] on evaluated for multiple reasons:-Lung Nodule-Discussed recent imaging results. Referral process started to see a specialist. -Prediabetes-Discussed recent lab results and recommendations provided-e levated platelet count-Discussed recent lab results, referral process to see specialist started.-Food Allergy-Discussed timing of follow up w/specialist. We evaluated Eladia Saldana for Lung Nodule, Prediabetes, elevated platelet count, and Food Allergy during this period from 2024-12-21 to 2024-12-28.A log history of our dialog is attached below. PHR was confirmed per below. 1. Thrombocytosis, unspecified (D75.839) CHRONIC CARE PLAN SOAP NOTE SUBJECTIVE: Patient presenting for management of elevated platelets. History of 2 DVTs and a PE about 15+ years ago on separate occasions. Treated with heparin. Patientrecalls the cause was contributed to control and sedentary lifestyle as I had herniatedL5/S1 which limited my mobility at the time. Denies any previous hematology work up, only ER. OBJECTIVE: Labs/tests completed on 12/25/24 showed: Hgb 12.9 WBC 7.7 Platelets 426 (H) (previously 432 on 12/10/24) I have reviewed and updated the problem and medication list and assessed the patient's pertinent positives and negatives as outlined in the annual wellness visit in 11/2024. ASSESSMENT & PLAN: Mild thrombocytosis - Complicated by history of recurrent DVTs Plan: 1. Referral to hematology for further evaluation and management. Follow-up interval and reason/type: after specialist evaluation 2. Localized enlarged lymph nodes (R59.0) REFERRAL CARE [...] pulmonary 2) Pt states will also have power operator look at CT scan results, discussed how to access it and let our staff know if unable to do so. Follow up:?? - Referral follow-up scheduled: 45 days 3. Prediabetes (R73.03) Patient reports that she began experiencing 1-2/10 headaches with metformin, which is the same sideeffect that she had the last time she took it. She is amenable to continuing and says it is not badenough to concern her. Will plan to monitor for changes in headache. Will have her continue and send 7 day f/u to make sure headache is improving. Written by Deondre Ayala on 2024-12-21
--- OUTSIDE RECORDS SUMMARY | 2025-07-19 08:22 | XMS_ITS | Clinical Summary ---
Author Organization [facility] Address [address] [address] Phone Care Team Providers Care Auto Fleet Manager Name Role Phone Pcp, Unknown Primary Care [...] Take 1 tablet by mouth every morning. Active ciclopirox (PENLAC) 8 % solution Apply topically nightly at bedtime. 5 Active EPINEPHrine 0.3 mg/0.3 mL auto-injector Inject 0.3 mg into the muscle once as needed. Active metFORMIN (GLUCOPHAGE) 500 MG tablet Take 1 tablet by mouth every morning. Active Social History Tobacco Use Types Packs/Day Years [...] 03/18/2025 11:57 AM EDT Plan of Treatment Upcoming Encounters Date Type Department Care Team (Late st Contact Info) Description 01/10/2026 8:30 AM EDT Office Visit [facility] [address] [place] [address] Unknown, Unknown, Ewa Zhou, CAR WASH SUPERVISOR [address] [place] [address] victor [email or web address] Health Maintenance Due Date Last Done Comments CREATININE LEVEL 1975 DEPRESSION SCREENING 1987 HEPATITIS C SCREENING 1993 HIV ONE-TIME SCREENING (18-6 5 YEARS) 1993 PAP SMEAR 1996 SCREENING FOR DIABETES 2010 COLOGUARD 2020 FIT TEST 2020 FOBT 2020 SIGMOIDOSCOPY 2020 VIRTUAL COLONOSCOPY 2020 Adult Td,Tdap Booster 01/13/2022 01/14/2012 , 08/31/2003 INFLUENZA VACCINE (#1) 2025 09/11/2021 COVID-19 VACCINE (2024-2 6 season) 2025 SMOKING Hx and SMOKELESS TOBACCO SCREENING 03/22/2026 [...] Procedure Name Priority Date/Time Associated Diagnosis Comments ENDOSCOPY, COLON 03/22/2025 12:0 9 PM EDT from Last 3 Months or Most Recently Relevant to Health Maintenance Results * ENDOSCOPY, COLON (03/22/2025 12:09 PM EDT) Narrative Transcriptions Chris Grullon MD - 03/22/2025 12:09 PM EDT [facility] Patient Name: Eladia Trinh Attending MD:: CHRIS GRULLON MD, Procedure Date: 03/22/2025 12:09 PM Date of : 1975 Age: 49 Admit Type: Outpatient Gender: Female Room: [facility] Referring MD: Unknown Unknown Exam Type: Colonoscopy [...] monitored continuously. The Olympus adult variable colonoscope [id number] #1 was introduced through the anus and advanced to the terminal ileum, with identification of theappendiceal orifice and IC valve. The colonoscopy was somewhat difficult due to a redundant colon and thepatient's body habitus. Successful completion of theprocedure was aided by applying abdominal pressure. Thepatient tolerated the procedure fairly well. The quality of the bowel preparation was evaluated using the BBPS ([employer] Bowel Preparation Scale) with scores of:Right Colon [...] 12:09 PM Procedure Code(s): --- Professional --- 58392, Colonoscopy, flexible; diagnostic, including collection of specimen(s) by brushing or washing, when performed (separateprocedure) --- Technical --- 49545, Colonoscopy, flexible; diagnostic, including collection of specimen(s) [...] congenital malformations of intestine CPT copyright 2021 [employer]. All rights reserved. The codes documented in this report are preliminary and upon miter saw operator reviewmay be revised to meet current compliance requirements. Procedure Date: 03/22/2025 12:09:[address] [place] [address] us Unknown Unknown MD GI PROCEDURE ORDERABLES Final Result from Last 3 Months or Most Recently Relevant to Health Maintenance Insurance [facility] POS POS [place] [address] [place] [address] [place] [address] [address] POS Care Teams Auto Fleet Manager Relationship Specialty Start Date End Date Pcp, Unknown PCP - General 02/08/25 Additional Source Comments The information contained in this document represents components of the legal health record. It is not the complete legal health record.[facility]
[2025-07-19] MEDS: iohexoL 350 MG/ML 100 ML INFUS..BTL 65 ML IV (09:23)
== END 2025-07-19 08:08 | disposition home or self-care (01) ==
LOC: HO.CT 08:07
PROVIDERS: Visit Provider Nurse Practitioner Family
DX: R91.1 Solitary pulmonary nodule (principal); R59.0 Localized enlarged lymph nodes
CPT/HCPCS: 71260; Q9967

== ENCOUNTER → 2025-07-19 08:10 | Outpatient (BNV) | payer OTHER, SELFPAY | PROVIDERS: Visit Provider Radiology Diagnostic Ultrasound | DX: R59.0 Localized enlarged lymph nodes (principal) | CPT/HCPCS: 71260 ==

== ENCOUNTER 2025-07-28 15:17 | Outpatient (AMB) | payer OTHER, SELFPAY ==
[2025-07-28 15:21] VITALS: BP 132/70; PULSE 98; O2SAT 98; BMI 41.9
--- NOTE | 2025-07-28 15:21 | A.OFFVIS_ITS ---
Vital Signs 07/28/25 15:21 Height 5 ft 2 in Weight 229 lb BMI 41.9 BP 132/70 Blood Pressure Location Lt brachial Position Sitting Pulse 98 Pulse Source Pulse Oximeter Pulse Oximetry (%) 98 Oxygen Delivery Method Room Air Intake Visit Reasons: Pulmonary Nodule/CT Follow Up Home Health Lvn Required: No Business Office Specialist: Business Office Specialist offered & declined Accompanied by: Self / Same As Patient Allergies codeine Allergy (Intermediate, Verified 07/28/25 15:27) Hives gluten Allergy (Intermediate, Verified 07/28/25 15:27) Hives Medication List - Last Reconciled 07/28/25 by Tasha March LPN albuterol-budesonide 90-80 mcg/actuation (Airsupra) inhalations inhalation bupropion HCl XL 150 mg PO DAILY buspirone 15 mg PO BID epinephrine IM metformin 500 mg PO DAILY naratriptan mg PO topiramate 25 mg PO DAILY HPI HPI Pulmonary Nodule/CT Follow Up: Details: Eladia is a pleasant 49 year old, former minimal smoker, with underlying asthma and factor V Leiden 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 She was initially referred by PCP pulmonary evaluation after chest CTA to rule out PE performed 12/2024 revealed mediastinal lymphadenopathy, noting enlarged azygos lymph node. Prior chest CT from 2022 revealed ill defined 9mm LLL opacity which has since resolved as well as a cluster of enlarged lymph nodes measuring 2.5 x 2.[address] 04/2025 continued to reveal enlargement and had imaging again 07/2025 to assess stability, which redemonstrated 2.3 cm enlarged azygos lymph node and stable LLL 2 mm pulmonary nodule. At this time she denies any respiratory symptoms however did have to use Air Supra once last week for episode of sudden onset dyspnea which resolved and has not recurred. She denies any visits to urgent care or hospitalizations related to respiratory distress since the last visit. Prior PFT 01/2025 unremarkable. Of note, she states PCP will be sending for evaluation for KIMBERLY. [facility] Social History (Updated 07/28/25 @ 15:34 by Tasha March LPN) Patient Tobacco Use Status: Never used Tobacco Years Smoked: Smoked 2 packs only Review of Systems Const Denies chills, Denies excessive sweating, Denies fever(s), Denies headache(s) and Denies night sweats Eyes Denies dry eyes, Denies irritation and Denies itchy eyes ENT Reports Normal hearing present, Denies headache(s), Denies nasal congestion, Denies nasal discharge, Denies post nasal drip and Denies sore throat Card Denies chest pain, Denies chest pain at rest, Denies chest pain with activity, Denies claudication, Denies leg edema, Denies dyspnea, Denies dyspnea on exertion, Denies orthopnea and Denies paroxysmal nocturnal dyspnea Resp Denies chest congestion, Denies cough, Denies excessive phlegm production, Denies pain on inspiration, Denies pain with cough, Denies dyspnea, Denies dyspnea on exertion, Denies stridor and Denies wheezing Musc Denies myalgias Neuro Reports Normal hearing present and Denies headache(s) Endo Denies excessive sweating Jaydon/Lymph Denies lymphadenopathy Aller/Immun Denies itchy eyes, Denies seasonal rhinorrhea and Denies wheezing Physical Exam Vital Signs: Last Vital Signs Pulse 98 07/28/25 15:21 BP 132/70 07/28/25 15:21 Pulse Ox 98 07/28/25 15:21 Oxygen Delivery Method Room Air 07/28/25 15:21 BMI result Body Mass Index 41.9 Const General: cooperative, healthy appearing, comfortable, no acute distress, well developed and alert Nutritional Appearance: obese Orientation/consciousness: patient oriented x3 Limitations: no limitations HEENT Head: Yes normal to inspection, Yes normocephalic and Yes atraumatic Ears: hearing grossly normal bilaterally and external ears normal Eyes General: appearance normal, both eyes and all related structures Eyelids: Yes eyelids normal Sclerae: sclerae normal EOM: EOMs intact bilaterally Neck Neck: Yes normal visual inspection and Yes no lymphadenopathy Lymphatic: no lymphadenopathy noted Chest Chest palpation & inspection: normal inspection of the chest Resp Effort & Inspection: normal respiratory effort, able to speak in complete sentences, no audible wheezes, no cough, no stridor, not tachypneic, no tripod positioning and no use of accessory muscles Auscultation: clear to auscultation bilaterally Cardio Jugular venous distension: no JVD Rate: regular rate Rhythm: regular rhythm Skin Other: warm, dry General skin exam: no rashes or lesions noted Neuro General: patient oriented x3 Cranial nerves: Yes Normal hearing present Cognition (Neuro): normal cognition Gait exam (Neuro): Normal gait present Extrem General: Yes normal to inspection, Yes capillary refill normal, Yes no clubbing, cyanosis or edema and Yes no pedal edema Psych Appearance: grossly normal and well kempt Speech and movement: Normal speech and movement present and Clear speech present Affect: normal affect Attitude: cooperative Thought process: Normal thought process present Thought content: Normal thought content present Insight: Good insight present (Psych) Judgement: Good judgement present (Psych) Assessment & Plan Assessment & Plan (1) Mediastinal lymphadenopathy: Code(s): R59.0 - Localized enlarged lymph nodes Category: Medical (2) Asthma: Code(s): J45.909 - Unspecified asthma, uncomplicated Category: Medical Plan The patient is advised to continue using AirSupra as needed and encouraged to monitor for increased frequency of use, which may necessitate a daily maintenance inhaler. Reviewed chest CT from 07/2025 which redemonstrated 2.3 cm enlarged azygos lymph node. Reviewed with radiologist who feels finding is more cystic in nature possibly congenital however patient concerned with findings and would like to have further evaluation with thoracic. Will enter referral. At this time patient feels respiratory symptoms are well controlled, unremarkable respiratory exam and VSS. She denies any recent URI and denies any h/o an aphylaxis. At this time, patient would be low risk for pulmonary complications for upcoming allergy testing however cautioned should be taken given h/o asthma. All questions were answered and patient is in agreement of plan. Will follow-up in 3-6 months or sooner if needed. Coding Level of Care Code Est Pt Level 4 (59340) Diagnoses Mediastinal lymphadenopathy R59.0 Asthma J45.909
--- OUTSIDE RECORDS SUMMARY | 2025-07-28 18:52 | XMS_ITS | Patient Health Record ---
Author Organization [facility] Address [address] [place] [address] Care Team Providers Care Software Intern Name Role Phone KELVIN BROUSSARD [phone] Allergies Allergen (clinical drug ingredient) Drug/Non Drug Allergy documented on EMR Reaction Allergy Type Onset Date Status codeine Codeine hives Drug Allergy Active Results Component Value Reference Range Notes PDF Report Reviewed date:07/08/2025 08:43:52 AM Interpretation: Performing Lab:[facility] [address], [address], [place], Phone - [phone], Director - [facility] Notes/Report: Clinical Information:VAG/CERV [id number] LMP / Prev Treat...COT=[id number] No. of containers..01 ThinPrep Vial [id number] IGP No Culture 30 Plus Reviewed date:07/08/2025 03:50:44 PM Interpretation: Performing Lab:[facility] [address], [address], [place], Phone - [phone], Director - [facility] Notes/Report: Clinical Information:VAG/CERV [id number] LMP / Prev Treat...CLC=[id number] No. of containers..01 ThinPrep Vial Clinical Information:VAG/CERV [id number] LMP / Prev Treat...LJV=[id number] No. of containers..01 ThinPrep Vial DIAGNOSIS: NEGATIVE FOR INTRAEPITHELIAL LESION OR MALIGNANCY. PREDOMINANCE OF COCCOBACILLI CONSISTENT WITH SHIFT IN VAGINAL SELVIN IS PRESENT. THIS SPECIMEN WAS RESCREENED PART OF OUR GRIP BOSS PROGRAM. Specimen adequacy: Satisfact ory for evaluation. No endocervical component is identified. Clinician provided ICD10: Z01.419 Z11.51 Performed by: Rashida alfonso, Distance Learning Unit Leader (ASCP) QC reviewed by: Doug sepulveda, Distance Learning Unit Leader (ASCP) . . 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 Problem Chronic migraine without aura, non-refractory (disorder) (579371060789583) Migraine without aura, not intractable, without status migrainosus (G43.009) Active confirmed Problem Mild intermittent asthma (194432561) Mild intermittent asthma, uncomplicated (J45.20) Active confirmed Problem COVID-19 (382309230) COVID-19 (U07.1) Active confirmed Vital Signs Temperature 97.8 degrees Fahrenheit 07/09/2025 Blood pressure diastolic 84 mm Hg 07/09/2025 Height 62 in 07/09/2025 Blood pressure systolic 140 mm Hg 07/09/2025 Weight 223 lbs 07/09/2025 BMI 40.78 kg/m2 07/09/2025 Encounters Encounter Location Date Provider Diagnosis [facility] [address] [facility] [address] [address] 07/01/2025 KELVIN BROUSSARD Encounter for gynecological examination (general) (routine) without abnormal findings Z01.419 ; Encounter for screening mammogram for malignant neoplasm of breast Z12.31 and Encounter for screening for human papillomavirus (HPV) Z11.[address] [address] 07/09/2025 KELVIN BROUSSARD Encounter for other general counseling and advice on contraception Z30.09 ; Other primary thrombophilia D68.59 ; Polycystic ovarian syndrome E28.2 and Elevated blood-pressure reading, without diagnosis of hypertension R03.[address] [address] 07/10/2025 KELVIN BROUSSARD Assessments Encounter Date Diagnosis [...] Provider Name:KELVIN Chung, 07/15/2026 08:30:00 AM, [address], [address], [place], [address], Insurance Providers Payer Name Payer Address Payer Phone Subscriber Number Group Number Insured Name Patient Relationship to Insured Coverage Start Date Coverage End Date [facility] [address] [place] [address] [id number] NAYANA FIGUEROA Self - patient is the insured Medical (General) History Medical History History ICD Code Migraine without aura, not intractable, without status migrainosus G43.009 Mild intermittent asthma, uncomplicated J45.20 Dense breasts, unspecified R92.30 Polycystic ovarian syndrome E28.2 Other primary thrombophilia D68.59 COVID-19 U07.1 Hospitalization History Reason Date(Month/Year) BREATHING DIFFICULTIES 07/2023
--- OUTSIDE RECORDS SUMMARY | 2025-07-28 18:52 | XMS_ITS | Encounter Summary ---
Author Organization [facility] Address [address] [place] [address] Phone Care Team Providers Care Cutting Table Operator Name Role Phone Pcp, Unknown Primary Care Provider Unavailabl e Encounter Details Date Type Department Care Team (Late st Contact Info) Description 03/22/2025 Procedure Pass [facility] Endoscopy Admitting Dept Virtual Department [address] [place], [place] [id number] Social History Tobacco Use Types Packs/Day Years [...] 01/10/2026 8:30 AM EDT Office Visit [facility] [address] [place] [phone] Unknown, Unknown, Ewa Zhou, EYEGLASS FITTER [address] [place] [address] victor [email or web address] documented as of this encounter Visit Diagnoses Not on filedocumented in this encounter Care Teams Cutting Table Operator Relationship Specialty Start Date End Date Pcp, Unknown PCP - General 02/08/25 documented as of this encounter Additional Source Comments The information contained in this document represents components of the legal health record. It is not the complete legal health record.[facility]
--- OUTSIDE RECORDS SUMMARY | 2025-07-28 18:52 | XMS_ITS | Clinical Summary ---
Author Organization [facility] Address [address] [address] Phone Care Team Providers Care Residential Treatment Counselor Name Role Phone Pcp, Unknown Primary Care Provider Unavailabl e Allergies Active Allergy Reactions Criticality Noted Date Comments Codeine Hives 03/18/2025 Medications AIRSUPRA 90-80 mcg/actuation inhaler Inhale 2 puffs into the lungs daily as needed. Active buPROPion (WELLBUTRIN XL) 150 MG ER [...] Description 01/10/2026 8:30 AM EDT Office Visit [facility] [address] [place] [phone] Unknown, Unknown, Ewa Zhou, HIGH SCHOOL FOREIGN LANGUAGE TUTOR [address] [place] [address] victor [email or web address] Maintenance Due Date Last Done Comments [...] Grullon MD - 03/22/2025 12:09 PM EDT [facility] Patient Name: Eladia Trinh Attending MD:: CHRIS GRULLON MD, Procedure Date: 03/22/2025 12:09 PM Date of : 1975 Age: 49 Admit Type: Outpatient Gender: Female Room: [facility] Referring MD: Unknown Unknown Exam Type: Colonoscopy [...] monitored continuously. The Olympus adult variable colonoscope [id number] #1 was introduced through the anus and advanced to the terminal ileum, with identification of theappendiceal orifice and IC valve. The colonoscopy was somewhat difficult due to a redundant colon and thepatient's body habitus. Successful completion of theprocedure was aided by applying abdominal pressure. Thepatient tolerated the procedure fairly well. The quality of the bowel preparation was evaluated using the BBPS ([place] Bowel Preparation Scale) with scores of:Right Colon [...] 12:09 PM Procedure Code(s): --- Professional --- 14230, Colonoscopy, flexible; diagnostic, including collection of specimen(s) by brushing or washing, when performed (separateprocedure) --- Technical --- 13007, Colonoscopy, flexible; diagnostic, including collection of specimen(s) [...] congenital malformations of intestine CPT copyright 2021 [employer]. All rights reserved. The codes documented in this report are preliminary and upon outpatient coder reviewmay be revised to meet current compliance requirements. Procedure Date: 03/22/2025 12:09:[address] [place] [address] us Unknown Unknown MD GI PROCEDURE ORDERABLES Final Result from Last 3 Months or Most Recently Relevant to Health Maintenance Insurance [facility] UNITED POS UNITED POS [place] [address] [place] [address] [place] [address] [place] [address] POS Care Teams Residential Treatment Counselor Relationship Specialty Start Date End Date Pcp, Unknown PCP - General 02/08/25 Additional Source Comments The information contained in this document represents components of the legal health record. It is not the complete legal health record.[facility]
--- OUTSIDE RECORDS SUMMARY | 2025-07-28 18:52 | XMS_ITS | Clinical Summary ---
Author Organization [facility] Address [address] [place] [address] Care Team Providers Care Batch Or Continuous Still Operator Name Role Phone Unavailable Primary Care Provider [...]
--- OUTSIDE RECORDS SUMMARY | 2025-07-28 18:53 | XMS_ITS | Encounter Summary ---
Author Organization [facility] Address [address] [place] [address] Encounters * Text, 21+ min with Fatou Hendricks at [facility] on 2025-07-14 49F was evaluated for history of recurrent migraines without aura. Abortive and prophylactic medications prescribed. Follow up scheduled. We evaluated Eladia Saldana for Migraine Intake during this period from 2025-07-14 to 2025-07-21. A log history of our dialog is attached below. PHR was confirmed per below. 1. 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 Options limited because of Factor V leiden def. Just wants to use naratriptan at this time. Currently taking nataratriptan twice a month. OBJECTIVE: I have reviewed and updated the problem and medication list and assessed the patient's pertinent positives and negatives. ASSESSMENT & PLAN: Clinical picture indicative of this diagnosis: Chronic migraines Plan: 1. d/c topiramate (adjusted med list, added OCP Eva) 2. monitor migraine use. 3. does not need refills at this time Follow-up interval and reason/type: PRN Total time spent, including chart review and documentation: 10 m Written by Fatou Hendricks on 2025-07-14
== END 2025-07-28 16:20 | disposition home or self-care (01) ==
LOC: HO.HPSW 15:18
PROVIDERS: Visit Provider Nurse Practitioner Family
DX: R59.0 Localized enlarged lymph nodes (principal); J45.909 Unspecified asthma, uncomplicated
CPT/HCPCS: 99214